=== PATIENT | female | born 1975 | race Caucasian/White ===

== ENCOUNTER 2016-03-19 15:44 | Emergency (ER) | payer OTHER | END 2016-03-19 18:39 | disposition left against medical advice (07) | LOC: M ED 15:44 | DX: I10 Essential (primary) hypertension (principal); F41.9 Anxiety disorder, unspecified; J45.909 Unspecified asthma, uncomplicated; G40.909 Epilepsy, unspecified, not intractable, without status epilepticus; E28.2 Polycystic ovarian syndrome; D25.9 Leiomyoma of uterus, unspecified; F17.210 Nicotine dependence, cigarettes, uncomplicated; Z79.51 Long term (current) use of inhaled steroids; Z79.899 Other long term (current) drug therapy; Z91.041 Radiographic dye allergy status; Z88.0 Allergy status to penicillin; Z88.2 Allergy status to sulfonamides; Z53.29 Procedure and treatment not carried out because of patient's decision for other reasons ==

== ENCOUNTER 2016-05-24 11:43 | Emergency (ER) | payer OTHER ==
[~2016-05-24] VITALS: Ht 170.2 cm; Wt 103.0 kg
[2016-05-24] MEDS ORDERED: ALBU17IN INH (11:57)
[2016-05-24] MEDS ORDERED: ALPR2TAB3 PO (11:57)
[2016-05-24] MEDS ORDERED: guaiFENesin SYRUP 200 MG/10 ML UDC PO ONE (14:00)
[2016-05-24] MEDS ORDERED: ONDANSETRON 4 MG ORAL DISINTEGRATING TAB (S0181) PO ONE (14:15)
--- NOTE | 2016-05-24 14:49 | ED PDOC ---
Provider Note AT THIS TIME, PT CAME OUT TO THE DESK, CONCERNED SHE WAS HAVING AN ALLERGIC REACTION TO THE MEDICATIONS SHE HAD TODAY. STATED HER CHIN WAS RED AND FEELING FLUSHED. PT DENIES ANY THROAT TIGHTNESS, DIFFICULTY BREATHING OR ITCHING AT THIS TIME. MEDICATIONS ORDERED. PT STATED SHE DROVE HERSELF TO THE ER TODAY SO NO BENADRYL ORDERED AT THIS TIME. BUZZ MILTON PA-C May 24, 2016 14:48
[2016-05-24] MEDS ORDERED: FAMOTIDINE 20 MG TAB PO ONE (15:00)
[2016-05-24] MEDS ORDERED: predniSONE 20 MG TAB PO ONE (15:00)
[2016-05-24] MEDS ORDERED: ZITHTAB PO (15:10)
[2016-05-24] MEDS ORDERED: TESS100C PO (15:10)
[2016-05-24 15:20] VITALS: BP 145/89
== END 2016-05-24 15:25 | disposition home or self-care (01) ==
LOC: M ED 12:36
DX: J01.90 Acute sinusitis, unspecified (principal); F41.9 Anxiety disorder, unspecified; J45.909 Unspecified asthma, uncomplicated; N83.299 Other ovarian cyst, unspecified side; F17.200 Nicotine dependence, unspecified, uncomplicated; Z88.6 Allergy status to analgesic agent; Z91.041 Radiographic dye allergy status; Z88.5 Allergy status to narcotic agent; Z88.0 Allergy status to penicillin; Z88.2 Allergy status to sulfonamides

== ENCOUNTER 2016-08-07 23:31 | Emergency (ER) | payer OTHER ==
[~2016-08-07] VITALS: Ht 175.3 cm; Wt 105.2 kg
[~2016-08-07 23:31] MED LIST: ALBU17IN INH; ALPR2TAB3 PO; TESS100C PO; ZITHTAB PO
[2016-08-07 23:32] VITALS: BP 133/86
[2016-08-08] MEDS ORDERED: VITA200016 PO
[2016-08-08] MEDS ORDERED: VITA50LO2 PO
[2016-08-08] MEDS ORDERED: GOOD1POW4 PO
[2016-08-08] MEDS ORDERED: IRON65TA PO (00:01)
== END 2016-08-08 03:10 | disposition left against medical advice (07) ==
LOC: M ED 08-08 00:39
DX: M79.606 Pain in leg, unspecified (principal); Z53.21 Procedure and treatment not carried out due to patient leaving prior to being seen by health care provider

== ENCOUNTER → 2016-08-09 | Outpatient (CLI) | payer OTHER ==
[~2016-08-09] MED LIST changes: +GOOD1POW4 PO; +IRON65TA PO; +VITA200016 PO; +VITA50LO2 PO
--- NOTE | 2016-08-09 16:46 | REP ---
Duplex extremity venous ultrasound: Right lower extremity. History: Right lower extremity pain. Multiple bruises. Findings: The deep veins are anechoic and fully compressible from the groin to the popliteal fossa in the right lower extremity. Color flow imaging is homogeneous. Spectral Doppler interrogation demonstrates intact respiratory variation in flow and normal manual augmentation of flow. There is no evidence of deep vein thrombosis. Scanning in the area of the pain in the calf shows a new 1.1 x 0.7 x 1.4 cm hypoechoic zone in the subcutaneous region which could be a contusion or hematoma. No other abnormality. Impression: Negative right lower extremity duplex venous ultrasound. No evidence of deep vein thrombosis. Signed by Jerome Gilliam MD 08/09/2016 08:06 P
== END ==
LOC: M RAD 15:57
PROVIDERS: ATTEND Physician Assistant Medical
DX: M79.661 Pain in right lower leg (principal); R60.0 Localized edema

== ENCOUNTER 2016-09-05 00:13 | Emergency (ER) | payer OTHER ==
[2016-09-05 02:10] VITALS: BP 128/78
[2016-09-05] MEDS ORDERED: DERMABOND TOPICAL SKIN ADHESIVE TOP ONE (02:45)
== END 2016-09-05 03:22 | disposition home or self-care (01) ==
LOC: M ED 01:21
DX: S91.311A Laceration without foreign body, right foot, initial encounter (principal); W25.XXXA Contact with sharp glass, initial encounter; Y92.009 Unspecified place in unspecified non-institutional (private) residence as the place of occurrence of the external cause; Y93.89 Activity, other specified; Y99.8 Other external cause status; J45.909 Unspecified asthma, uncomplicated; F17.200 Nicotine dependence, unspecified, uncomplicated; Z88.5 Allergy status to narcotic agent; Z88.0 Allergy status to penicillin; Z88.2 Allergy status to sulfonamides; Z88.6 Allergy status to analgesic agent; Z91.041 Radiographic dye allergy status

== ENCOUNTER → 2016-11-05 | Outpatient (CLI) | payer OTHER | LOC: M SMT 15:43 | PROVIDERS: ATTEND Specialist | DX: N83.202 Unspecified ovarian cyst, left side (principal) ==

== ENCOUNTER → 2017-02-25 | Outpatient (CLI) | payer OTHER ==
[2017-02-25 12:00] LABS: BASO # 0.1 10^3/uL (0.0-0.2); BASO % 0.6 % (0.0-1.0); EOS # 0.2 10^3/uL (0.0-0.50); EOS % 1.9 % (0.0-3.0); IMMATURE GRANULOCYTE % 0.3 % (0-0); LYMPH # 1.6 10^3/uL (1.5-4.5); LYMPH % 17.3 % (24.0-44.0); MEAN CORPUSCULAR HEMOGLOBIN 31.1 pg (27.0-33.0); MEAN CORPUSCULAR HGB CONC 33.7 g/dl (32.0-36.5); MEAN CORPUSCULAR VOLUME 92.2 fl (80.0-96.0); MONO # 0.5 10^3/uL (0.0-0.8); NEUTROPHILS # 7.1 10^3/uL (1.8-7.7); NEUTROPHILS % 74.9 % (36.0-66.0); PLATELET COUNT, AUTOMATED 247 10^3/uL (150-450); WHITE BLOOD COUNT 9.5 10^3/uL (4.0-10.0)
[2017-02-25 12:51] LABS: ALBUMIN 3.9 GM/DL (3.2-5.2); ALBUMIN/GLOBULIN RATIO 1.34 (1.00-1.93); ALKALINE PHOSPHATASE 38 U/L (45-117); ALT/SGPT 16 U/L (12-78); ANION GAP 10 MEQ/L (8-16); AST/SGOT 10 U/L (7-37); BILIRUBIN,TOTAL 0.8 MG/DL (0.2-1.0); BLOOD UREA NITROGEN 8 MG/DL (7-18); CALCIUM LEVEL 8.7 MG/DL (8.5-10.1); CARBON DIOXIDE LEVEL 24 MEQ/L (21-32); CHLORIDE LEVEL 107 MEQ/L (98-107); CHOLESTEROL LEVEL 120 MG/DL (<200); CREATININE FOR GFR 0.68 MG/DL (0.55-1.02); GLOMERULAR FILTRATION RATE > 60.0 (>58); GLUCOSE, FASTING 100 MG/DL (70-105); POTASSIUM SERUM 3.9 MEQ/L (3.5-5.1); SODIUM LEVEL 141 MEQ/L (136-145); T UPTAKE 32 % (30-39); THYROXINE (T4) 10.4 UG/DL (4.5-12.0); TOTAL PROTEIN 6.8 GM/DL (6.4-8.2); TRIGLYCERIDES LEVEL 92 MG/DL (<150)
== END ==
LOC: M LAB 11:32
PROVIDERS: ATTEND Physician Assistant Medical
DX: E78.2 Mixed hyperlipidemia (principal); F41.1 Generalized anxiety disorder; E55.9 Vitamin D deficiency, unspecified

== ENCOUNTER 2017-07-06 21:01 | Emergency (ER) | payer OTHER ==
[2017-07-06] MEDS: LIDOCAINE VISCOUS 2% SOLN 15ML UDC SSP (21:30)
[2017-07-06] MEDS: traMADol 50 MG TAB PO ×2 (21:45→22:06)
[2017-07-06] MEDS: CEPHALEXIN 500 MG CAP PO (22:05)
== END 2017-07-06 22:09 | disposition home or self-care (01) ==
LOC: M ED 21:01
DX: J02.9 Acute pharyngitis, unspecified (principal); J03.90 Acute tonsillitis, unspecified; F17.200 Nicotine dependence, unspecified, uncomplicated; Z88.6 Allergy status to analgesic agent; Z88.0 Allergy status to penicillin; Z88.5 Allergy status to narcotic agent; Z88.2 Allergy status to sulfonamides; Z91.041 Radiographic dye allergy status
CPT/HCPCS: 87880

== ENCOUNTER 2017-10-14 18:42 | Emergency (ER) | payer MEDICAID, SELFPAY, OTHER ==
[2017-10-14 20:09] LABS: BASO % 0.4 % (0.0-1.0); EOS # 0.2 10^3/uL (0.0-0.50); EOS % 1.9 % (0.0-3.0); HEMATOCRIT 40.3 % (36.0-47.0); HEMOGLOBIN 13.4 g/dl (12.0-15.5); IMMATURE GRANULOCYTE % 0.3 % (0-3.0); LYMPH # 2.2 10^3/uL (1.5-4.5); MEAN CORPUSCULAR HEMOGLOBIN 30.4 pg (27.0-33.0); MEAN CORPUSCULAR HGB CONC 33.3 g/dl (32.0-36.5); MEAN CORPUSCULAR VOLUME 91.4 fl (80.0-96.0); MONO # 0.5 10^3/uL (0.0-0.8); MONO % 4.5 % (0.0-5.0); NEUTROPHILS # 7.9 10^3/uL (1.8-7.7); NEUTROPHILS % 72.9 % (36.0-66.0); PLATELET COUNT, AUTOMATED 256 10^3/uL (150-450); RED BLOOD COUNT 4.41 10^6/uL (4.00-5.40); RED CELL DISTRIBUTION WIDTH 13.2 % (11.5-14.5); WHITE BLOOD COUNT 10.9 10^3/uL (4.0-10.0)
[2017-10-14 20:15] LABS: CONTROL LINE HCG INT CTR LINE PRESENT; HCG, SERUM QUALITATIVE NEGATIVE (NEGATIVE)
[2017-10-14 20:27] LABS: ANION GAP 9 MEQ/L (8-16); BLOOD UREA NITROGEN 10 MG/DL (7-18); CALCIUM LEVEL 8.3 MG/DL (8.5-10.1); CARBON DIOXIDE LEVEL 24 MEQ/L (21-32); CHLORIDE LEVEL 108 MEQ/L (98-107); CK-MB VALUE MASS < 1.0 NG/ML (<3.6); CPK CREATINE PHOSPHOKINASE 81 U/L (26-192); CREATININE FOR GFR 0.81 MG/DL (0.55-1.30); GLOMERULAR FILTRATION RATE > 60.0 (>58); GLUCOSE, FASTING 120 MG/DL (70-100); MB/CK RELATIVE INDEX 1.23 (< OR =4); POTASSIUM SERUM 3.7 MEQ/L (3.5-5.1); SODIUM LEVEL 141 MEQ/L (136-145); TROPONIN I < 0.02 NG/ML (< 0.10)
[2017-10-14] MEDS: ASPIRIN 81 MG CHEW TABLET PO (20:28)
[2017-10-14] MEDS: LORazepam 2 MG/ML VIAL (J2060) IV (20:28)
[2017-10-14 22:22] LABS: CPK CREATINE PHOSPHOKINASE 66 U/L (26-192); TROPONIN I < 0.02 NG/ML (< 0.10)
[2017-10-14 22:23] LABS: CK-MB VALUE MASS < 1.0 NG/ML (<3.6); MB/CK RELATIVE INDEX 1.51 (< OR =4)
== END 2017-10-14 23:18 | disposition home or self-care (01) ==
LOC: M ED 18:42
DX: F41.0 Panic disorder [episodic paroxysmal anxiety] (principal); Z72.0 Tobacco use; Z88.6 Allergy status to analgesic agent; Z88.5 Allergy status to narcotic agent; Z88.0 Allergy status to penicillin; Z88.2 Allergy status to sulfonamides; Z91.041 Radiographic dye allergy status
CPT/HCPCS: J2060

== ENCOUNTER → 2017-10-22 | Outpatient (CLI) | payer OTHER ==
[2017-10-24 10:47] LABS: RUBELLA IgG QUALITATIVE IMMUNE (IMMUNE)
== END ==
LOC: M WUC 13:31
DX: Z11.59 Encounter for screening for other viral diseases (principal)
CPT/HCPCS: 86762

== ENCOUNTER → 2017-12-19 | Outpatient (REF) | payer OTHER | LOC: M SFHCLERA 16:12 | DX: R53.81 Other malaise (principal) ==

== ENCOUNTER → 2017-12-29 | Outpatient (REF) | payer OTHER | LOC: M SFHCLERA 16:06 | DX: R35.0 Frequency of micturition (principal) ==

== ENCOUNTER 2018-02-18 20:29 | Emergency (ER) | payer OTHER ==
[2018-02-18] MEDS ORDERED: dexameTHASONE 4 MG/ML 1ML VIAL (J1100) As Ordered (20:51)
[2018-02-18] MEDS ORDERED: IPRATROPIUM 0.02% SOLN 0.5MG/2.5 ML NEB As Ordered (20:51)
[2018-02-18] MEDS ORDERED: ALBUTEROL SULFATE 2.5 MG/0.5 ML INH NEB SOLN As Ordered (20:51)
== END 2018-02-18 22:26 | disposition home or self-care (01) ==
LOC: M ED 20:29
DX: J45.901 Unspecified asthma with (acute) exacerbation (principal); Z77.098 Contact with and (suspected) exposure to other hazardous, chiefly nonmedicinal, chemicals; J01.90 Acute sinusitis, unspecified; F17.200 Nicotine dependence, unspecified, uncomplicated; Z88.0 Allergy status to penicillin; Z88.2 Allergy status to sulfonamides; Z88.5 Allergy status to narcotic agent; Z88.6 Allergy status to analgesic agent; Z91.041 Radiographic dye allergy status; Z79.899 Other long term (current) drug therapy
CPT/HCPCS: 99284

== ENCOUNTER 2018-06-28 00:20 | Emergency (ER) | payer OTHER ==
[~2018-06-28] VITALS: Ht 172.7 cm; Wt 121.1 kg
[~2018-06-28 00:20] MED LIST changes: +DOXY100C37 PO; +IBUP1TAB7 PO; +KEFL500C17 PO; +PRED20TA PO
[2018-06-28 00:21] VITALS: BP 132/77
[2018-06-28] MEDS ORDERED: predniSONE 20 MG TAB PO ONE (00:45)
[2018-06-28] MEDS ORDERED: diphenhydrAMINE 50 MG CAP PO ONE (00:45)
[2018-06-28] MEDS ORDERED: IPRATROPIUM 0.5MG/ALBUTEROL 2.5MG INH SOL UD 3ML (DUONEB)(J7620) NEB ONE (00:45)
[2018-06-28] MEDS ORDERED: PRED20TA PO (01:23)
[2018-06-28] MEDS ORDERED: GUAI100L6 PO (01:23)
== END 2018-06-28 01:30 | disposition home or self-care (01) ==
LOC: M ED 00:20
DX: F41.9 Anxiety disorder, unspecified (principal); F17.200 Nicotine dependence, unspecified, uncomplicated; Z91.041 Radiographic dye allergy status; Z88.0 Allergy status to penicillin; Z88.1 Allergy status to other antibiotic agents; Z88.2 Allergy status to sulfonamides; Z88.8 Allergy status to other drugs, medicaments and biological substances; Z88.5 Allergy status to narcotic agent

== ENCOUNTER 2018-07-17 15:32 | Emergency (ER) | payer OTHER ==
[~2018-07-17] VITALS: Ht 172.7 cm; Wt 118.2 kg
[~2018-07-17 15:32] MED LIST changes: +GUAI100L6 PO
[2018-07-17 17:03] LABS: ALBUMIN 3.6 GM/DL (3.2-5.2); ALT/SGPT 13 U/L (12-78); BILIRUBIN,TOTAL 1.1 MG/DL (0.2-1.0); BLOOD UREA NITROGEN 10 MG/DL (7-18); CALCIUM LEVEL 8.2 MG/DL (8.5-10.1); CARBON DIOXIDE LEVEL 28 MEQ/L (21-32); CHLORIDE LEVEL 107 MEQ/L (98-107); CREATININE FOR GFR 0.81 MG/DL (0.55-1.30); GLOMERULAR FILTRATION RATE > 60.0 (>58); GLUCOSE, FASTING 97 MG/DL (70-100); POTASSIUM SERUM 3.9 MEQ/L (3.5-5.1); SODIUM LEVEL 138 MEQ/L (136-145); TOTAL PROTEIN 6.9 GM/DL (6.4-8.2)
--- NOTE | 2018-07-17 18:49 | REPVR ---
EXAM: US Duplex Right Lower Extremity Veins, Limited EXAM DATE/TIME: 07/17/2018 6:33 PM CLINICAL HISTORY: 43 years old, female; Pain; Leg, upper and leg, lower; Right; Additional info: Pain/swelling, eval for dvt TECHNIQUE: Imaging protocol: Real-time Duplex ultrasound of the Right Lower Extremity with 2-D lind scale, color Doppler flow and spectral waveform analysis. Limited exam was focused on the right lower extremity veins. COMPARISON: US Duplex, Ext,LOWER veins,unilat 08/09/2016 4:05 PM FINDINGS: Right deep veins: Unremarkable. The common femoral, femoral, proximal profunda femoral and popliteal veins are patent without thrombus. Normal Doppler waveforms. Normal compressibility and/or augmentation response. Right superficial veins: Unremarkable. Saphenofemoral junction is patent without thrombus. Soft tissues: Unremarkable. IMPRESSION: No acute findings. No evidence of deep vein thrombosis. Electronically signed by: Lul Norton On 07/17/2018 18:49:33 PM
[2018-07-17 19:06] VITALS: BP 116/73
== END 2018-07-17 19:12 | disposition home or self-care (01) ==
LOC: M ED 15:32
DX: R60.0 Localized edema (principal); R79.1 Abnormal coagulation profile; J45.909 Unspecified asthma, uncomplicated; Z87.42 Personal history of other diseases of the female genital tract; F17.200 Nicotine dependence, unspecified, uncomplicated; Z91.048 Other nonmedicinal substance allergy status; Z88.0 Allergy status to penicillin; Z88.2 Allergy status to sulfonamides; Z88.5 Allergy status to narcotic agent; Z88.6 Allergy status to analgesic agent

== ENCOUNTER 2018-07-24 18:14 | Emergency (ER) | payer OTHER ==
[~2018-07-24] VITALS: Ht 172.7 cm; Wt 121.7 kg
[2018-07-24] MEDS ORDERED: MELO15TA28 (18:20)
[2018-07-24] MEDS ORDERED: ALPR0.5T3 (18:20)
[2018-07-24 19:42] LABS: HEMATOCRIT 37.6 % (36.0-47.0); HEMOGLOBIN 12.2 g/dl (12.0-15.5); MEAN CORPUSCULAR HEMOGLOBIN 28.7 pg (27.0-33.0); MEAN CORPUSCULAR HGB CONC 32.4 g/dl (32.0-36.5); MEAN CORPUSCULAR VOLUME 88.5 fl (80.0-96.0); PLATELET COUNT, AUTOMATED 263 10^3/uL (150-450); RED BLOOD COUNT 4.25 10^6/uL (4.00-5.40)
[2018-07-24 20:03] LABS: BLOOD UREA NITROGEN 9 MG/DL (7-18); CALCIUM LEVEL 8.4 MG/DL (8.5-10.1); CARBON DIOXIDE LEVEL 25 MEQ/L (21-32); CHLORIDE LEVEL 106 MEQ/L (98-107); CK-MB VALUE MASS < 1.0 NG/ML (<3.6); CPK CREATINE PHOSPHOKINASE 54 U/L (26-192); CREATININE FOR GFR 0.74 MG/DL (0.55-1.30); GLOMERULAR FILTRATION RATE > 60.0 (>58); GLUCOSE, FASTING 92 MG/DL (70-100); MB/CK RELATIVE INDEX 1.85 (< OR =4); NT-PRO BNP 122 PG/ML (<125); POTASSIUM SERUM 3.9 MEQ/L (3.5-5.1); SODIUM LEVEL 138 MEQ/L (136-145); TROPONIN I < 0.02 NG/ML (< 0.10)
--- NOTE | 2018-07-24 20:58 | REPVR ---
EXAM: US Duplex Bilateral Lower Extremity Veins EXAM DATE/TIME: 07/24/2018 8:40 PM CLINICAL HISTORY: 43 years old, female; Pain; Leg, upper; Bilateral; Additional info: Leg swelling, pain RO dvt TECHNIQUE: Imaging protocol: Real-time duplex ultrasound of the Bilateral Lower Extremities with 2-D lind scale, color Doppler flow and spectral waveform analysis. Complete exam focused on the bilateral lower extremity veins. COMPARISON: US Duplex, Ext,LOWER veins,unilat RIGHT 07/17/2018 6:23 PM FINDINGS: Right deep veins: Unremarkable. The common femoral, femoral, proximal profunda femoral and popliteal veins are patent without thrombus. Normal Doppler waveforms. Normal compressibility and/or augmentation response. Right superficial veins: Saphenofemoral junction is patent without thrombus. Left deep veins: Unremarkable. The common femoral, femoral, proximal profunda femoral and popliteal veins are patent without thrombus. Normal Doppler waveforms. Normal compressibility and/or augmentation response. Left superficial veins: Saphenofemoral junction is patent without thrombus. Soft tissues: Unremarkable. IMPRESSION: No acute findings. No evidence of deep vein thrombosis. Electronically signed by: Binh Elkins On 07/24/2018 20:57:56 PM
[2018-07-24 21:34] VITALS: BP 149/89
--- NOTE | 2018-07-25 08:42 | REP ---
Chest x-ray: Two views. History: Short of breath. . Comparison study: October 14, 2017 . Findings: The lungs are well inflated and free of infiltrate. The pleural angles are sharp. The heart size is normal. Pulmonary vasculature is not increased. No significant bony abnormality is seen. Impression: Negative chest x-ray. Electronically Signed by Jerome Gilliam MD 07/25/2018 08:34 A
== END 2018-07-24 21:37 | disposition home or self-care (01) ==
LOC: M ED 18:14
DX: R60.0 Localized edema (principal); F17.211 Nicotine dependence, cigarettes, in remission; Z88.0 Allergy status to penicillin; Z88.2 Allergy status to sulfonamides; Z88.5 Allergy status to narcotic agent; Z88.6 Allergy status to analgesic agent; Z91.041 Radiographic dye allergy status; Z79.51 Long term (current) use of inhaled steroids

== ENCOUNTER 2018-08-11 01:31 | Emergency (ER) | payer OTHER ==
[~2018-08-11] VITALS: Ht 172.7 cm; Wt 118.2 kg
[~2018-08-11 01:31] MED LIST changes: +ALPR0.5T3; +MELO15TA28
[2018-08-11] MEDS ORDERED: ALBU8.5H (01:38)
[2018-08-11 02:02] LABS: BASO # 0.1 10^3/uL (0.0-0.2); BASO % 0.6 % (0.0-1.0); EOS # 0.2 10^3/uL (0.0-0.50); EOS % 1.9 % (0.0-3.0); HEMATOCRIT 37.4 % (36.0-47.0); HEMOGLOBIN 12.8 g/dl (12.0-15.5); LYMPH # 2.2 10^3/uL (1.5-4.5); LYMPH % 26.1 % (24.0-44.0); MEAN CORPUSCULAR HEMOGLOBIN 30.1 pg (27.0-33.0); MEAN CORPUSCULAR HGB CONC 34.2 g/dl (32.0-36.5); MONO # 0.4 10^3/uL (0.0-0.8); MONO % 4.8 % (0.0-5.0); NEUTROPHILS # 5.6 10^3/uL (1.8-7.7); NEUTROPHILS % 66.2 % (36.0-66.0); PLATELET COUNT, AUTOMATED 276 10^3/uL (150-450); RED BLOOD COUNT 4.25 10^6/uL (4.00-5.40); WHITE BLOOD COUNT 8.5 10^3/uL (4.0-10.0)
[2018-08-11 02:15] LABS: INR 0.86; PROTHROMBIN TIME 11.8 SECONDS (12.1-14.4)
[2018-08-11 02:47] LABS: ALBUMIN 3.3 GM/DL (3.2-5.2); ALT/SGPT 16 U/L (12-78); BILIRUBIN,TOTAL 0.6 MG/DL (0.2-1.0); BLOOD UREA NITROGEN 11 MG/DL (7-18); CALCIUM LEVEL 7.8 MG/DL (8.5-10.1); CARBON DIOXIDE LEVEL 24 MEQ/L (21-32); CHLORIDE LEVEL 106 MEQ/L (98-107); CK-MB VALUE MASS < 1.0 NG/ML (<3.6); CPK CREATINE PHOSPHOKINASE 82 U/L (26-192); CREATININE FOR GFR 0.82 MG/DL (0.55-1.30); GLOMERULAR FILTRATION RATE > 60.0 (>58); GLUCOSE, FASTING 118 MG/DL (70-100); LIPASE 122 U/L (73-393); MB/CK RELATIVE INDEX 1.22 (< OR =4); POTASSIUM SERUM 3.6 MEQ/L (3.5-5.1); SODIUM LEVEL 142 MEQ/L (136-145); TOTAL PROTEIN 6.6 GM/DL (6.4-8.2); TROPONIN I < 0.02 NG/ML (< 0.10)
[2018-08-11 05:54] LABS: CK-MB VALUE MASS < 1.0 NG/ML (<3.6); CPK CREATINE PHOSPHOKINASE 84 U/L (26-192); MB/CK RELATIVE INDEX 1.19 (< OR =4); TROPONIN I < 0.02 NG/ML (< 0.10)
[2018-08-11] MEDS ORDERED: ZITH250T PO (06:29)
[2018-08-11 06:44] VITALS: BP 119/64
--- NOTE | 2018-08-11 08:38 | REP ---
Portable chest x-ray: Single view. History: Chest pain. Comparison study: July 24, 2018. Findings: EKG monitoring electrodes overlie the chest. The lungs are well inflated and clear. Pleural angles are sharp. Heart size is normal. No significant bony abnormality. Impression: No active disease. Electronically Signed by Jerome Gilliam MD 08/11/2018 08:30 A
--- NOTE | 2018-08-11 20:55 | ECGEPIP ---
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
--- NOTE | 2018-08-11 20:55 | ECGEPIP ---
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
== END 2018-08-11 06:45 | disposition home or self-care (01) ==
LOC: M ED 01:31
DX: R07.89 Other chest pain (principal); F41.1 Generalized anxiety disorder; Z88.0 Allergy status to penicillin; Z88.1 Allergy status to other antibiotic agents; Z88.2 Allergy status to sulfonamides; Z88.5 Allergy status to narcotic agent; Z88.8 Allergy status to other drugs, medicaments and biological substances; Z91.040 Latex allergy status; Z87.891 Personal history of nicotine dependence

== ENCOUNTER → 2018-08-28 | Outpatient (REF) | payer OTHER ==
[~2018-08-28] MED LIST changes: +ALBU8.5H; +ZITH250T PO
== END ==
LOC: M SFHCLERA 14:23
PROVIDERS: ATTEND Nurse Practitioner Family
DX: M54.2 Cervicalgia (principal)

== ENCOUNTER 2018-11-30 21:33 | Emergency (ER) | payer OTHER ==
[~2018-11-30] VITALS: Ht 172.7 cm; Wt 118.1 kg
[2018-11-30 21:33] VITALS: BP 133/85
[2018-11-30] MEDS ORDERED: ALBUTEROL 90 MCG/ACT 8GM HFA INHALER INH ONE (23:00)
== END 2018-11-30 22:58 | disposition home or self-care (01) ==
LOC: M ED 21:33
DX: Z76.0 Encounter for issue of repeat prescription (principal); J45.909 Unspecified asthma, uncomplicated; Z79.899 Other long term (current) drug therapy; Z88.0 Allergy status to penicillin; Z88.2 Allergy status to sulfonamides; Z88.5 Allergy status to narcotic agent; Z88.6 Allergy status to analgesic agent; Z91.041 Radiographic dye allergy status

== ENCOUNTER 2019-02-15 22:30 | Emergency (ER) | payer OTHER ==
[~2019-02-15] VITALS: Ht 170.2 cm; Wt 113.6 kg
[2019-02-15 23:37] LABS: INFLUENZA A AMPLIFICATION NEGATIVE (NEGATIVE); INFLUENZA B AMPLIFICATION NEGATIVE (NEGATIVE)
[2019-02-16] MEDS ORDERED: PRED20TA PO ×2 (00:36→02:33)
[2019-02-16] MEDS ORDERED: PSEUDOEPHEDRINE 30 MG TAB PO STA (01:36)
[2019-02-16] MEDS ORDERED: BENZONATATE 100 MG CAP PO ONE (01:45)
[2019-02-16] MEDS ORDERED: predniSONE 20 MG TAB PO ONE (01:45)
[2019-02-16] MEDS ORDERED: GI COCKTAIL 50ML BTL(HYOSCYAMINE/MAALOX/LIDOCAINE VISCOUS)(1:3:1) PO ONE (01:45)
[2019-02-16] MEDS ORDERED: KETOROLAC 60 MG/2 ML VIAL (J1885) IM ONE (01:45)
[2019-02-16] MEDS ORDERED: TESS100C PO (02:33)
[2019-02-16] MEDS ORDERED: PSEU120T19 PO (02:33)
[2019-02-16 02:41] VITALS: BP 150/91
--- NOTE | 2019-02-16 07:38 | REP ---
Clinical: Cough and congestion . Comparison: 07/24/2018 . Technique: PA and lateral. Findings: The mediastinum and cardiac silhouette are normal. The lung zhang are clear and without acute consolidation, effusion, or pneumothorax. The skeletal structures are intact and normal. Impression: 1. No acute cardiopulmonary process. Electronically Signed by Joseph Crowe MD 02/16/2019 07:30 A
== END 2019-02-16 02:43 | disposition home or self-care (01) ==
LOC: M ED 22:30
DX: J32.9 Chronic sinusitis, unspecified (principal); H92.03 Otalgia, bilateral; R05 Cough; J02.9 Acute pharyngitis, unspecified; Z87.891 Personal history of nicotine dependence; Z91.041 Radiographic dye allergy status; Z88.0 Allergy status to penicillin; Z88.2 Allergy status to sulfonamides; Z88.5 Allergy status to narcotic agent; Z79.899 Other long term (current) drug therapy; Z79.52 Long term (current) use of systemic steroids
CPT/HCPCS: 71046; 87502; 87880; 96372; 99283; J1885

== ENCOUNTER 2019-03-28 23:38 | Emergency (ER) | payer OTHER ==
[~2019-03-28] VITALS: Ht 175.3 cm; Wt 114.1 kg
[~2019-03-28 23:38] MED LIST changes: +PSEU120T19 PO
[2019-03-29] MEDS ORDERED: methylPREDNISolone INJ 125 MG/2 ML VIAL (J2930) IM ONE (00:45)
[2019-03-29] MEDS ORDERED: IPRATROPIUM 0.5MG/ALBUTEROL 2.5MG INH SOL UD 3ML (DUONEB)(J7620) NEB ONE (00:45)
[2019-03-29 01:05] LABS: INFLUENZA A AMPLIFICATION NEGATIVE (NEGATIVE); INFLUENZA B AMPLIFICATION POSITIVE (NEGATIVE)
[2019-03-29] MEDS ORDERED: PRED20TA PO (01:23)
[2019-03-29] MEDS ORDERED: OSEL75CA PO (01:23)
[2019-03-29] MEDS ORDERED: OSELTAMIVIR PHOSPHATE 75 MG CAP (TAMIFLU) PO ONE (01:30)
--- NOTE | 2019-03-29 01:43 | REP ---
Clinical: Cough and shortness of breath . Comparison: 02/16/2019 . Technique: PA and lateral. Findings: The mediastinum and cardiac silhouette are normal. The lung zhang are clear and without acute consolidation, effusion, or pneumothorax. The skeletal structures are intact and normal. Impression: 1. No acute cardiopulmonary process. Electronically Signed by Joseph Crowe MD 03/29/2019 01:33 A
[2019-03-29 02:05] VITALS: BP 139/78
== END 2019-03-29 02:05 | disposition home or self-care (01) ==
LOC: M ED 23:38
DX: J45.901 Unspecified asthma with (acute) exacerbation (principal); J10.1 Influenza due to other identified influenza virus with other respiratory manifestations; F41.9 Anxiety disorder, unspecified; D25.9 Leiomyoma of uterus, unspecified; Z88.0 Allergy status to penicillin; Z88.1 Allergy status to other antibiotic agents; Z88.2 Allergy status to sulfonamides; Z88.5 Allergy status to narcotic agent; Z88.8 Allergy status to other drugs, medicaments and biological substances; Z91.041 Radiographic dye allergy status
CPT/HCPCS: 71046; 87502; 87880; 96372; 99284; J2930

== ENCOUNTER 2019-06-16 09:19 | Emergency (ER) | payer OTHER ==
[~2019-06-16] VITALS: Ht 172.7 cm; Wt 126.9 kg
[~2019-06-16 09:19] MED LIST changes: -ALPR0.5T3; +ALPR0.5T3 PO; +OSEL75CA PO
[2019-06-16] MEDS ORDERED: ONDA4TAB6 PO (09:30)
[2019-06-16] MEDS ORDERED: DIPH50CA PO (09:30)
[2019-06-16 10:55] LABS: HEMATOCRIT 40.3 % (36.0-47.0); MEAN CORPUSCULAR HGB CONC 32.3 g/dl (32.0-36.5); MEAN CORPUSCULAR VOLUME 86.7 fl (80.0-96.0); PLATELET COUNT, AUTOMATED 263 10^3/uL (150-450); RED BLOOD COUNT 4.65 10^6/uL (4.00-5.40); WHITE BLOOD COUNT 7.5 10^3/uL (4.0-10.0)
[2019-06-16 11:34] LABS: BLOOD UREA NITROGEN 11 MG/DL (7-18); CALCIUM LEVEL 8.5 MG/DL (8.5-10.1); CARBON DIOXIDE LEVEL 25 MEQ/L (21-32); CHLORIDE LEVEL 108 MEQ/L (98-107); GLOMERULAR FILTRATION RATE > 60.0 (>58); GLUCOSE, FASTING 119 MG/DL (70-100); HCG, SERUM QUANTITATIVE < 1.0 MIU/ML; SODIUM LEVEL 140 MEQ/L (136-145)
--- NOTE | 2019-06-16 11:59 | REP ---
CHEST, SINGLE VIEW: There is no evidence of acute infiltrate. No pleural effusion is seen. The heart is normal in size. The mediastinal silhouette is unremarkable. The visualized osseous structures are intact. IMPRESSION: No acute pulmonary disease. Electronically Signed by Waldemar Rivas MD 06/16/2019 12:15 P
[2019-06-16] MEDS ORDERED: PAME10CA PO (12:04)
[2019-06-16 12:20] VITALS: BP 134/93
== END 2019-06-16 12:22 | disposition home or self-care (01) ==
LOC: M ED 09:19
DX: F43.0 Acute stress reaction (principal); G47.00 Insomnia, unspecified; F41.9 Anxiety disorder, unspecified; D25.9 Leiomyoma of uterus, unspecified; J45.909 Unspecified asthma, uncomplicated; Z79.51 Long term (current) use of inhaled steroids; Z79.899 Other long term (current) drug therapy; Z88.0 Allergy status to penicillin; Z88.2 Allergy status to sulfonamides; Z88.6 Allergy status to analgesic agent; Z88.8 Allergy status to other drugs, medicaments and biological substances; Z91.041 Radiographic dye allergy status

== ENCOUNTER 2019-06-17 05:31 | Emergency (ER) | payer OTHER ==
[~2019-06-17] VITALS: Ht 172.7 cm; Wt 121.4 kg
[~2019-06-17 05:31] MED LIST changes: +DIPH50CA PO; +ONDA4TAB6 PO; +PAME10CA PO
[2019-06-17 05:32] VITALS: BP 158/92
[2019-06-17] MEDS ORDERED: LORazepam 2 MG TAB PO ONE (06:00)
== END 2019-06-17 06:14 | disposition home or self-care (01) ==
LOC: M ED 05:31
DX: F41.0 Panic disorder [episodic paroxysmal anxiety] (principal); F41.9 Anxiety disorder, unspecified; J45.909 Unspecified asthma, uncomplicated; Z79.899 Other long term (current) drug therapy; Z91.041 Radiographic dye allergy status; Z88.0 Allergy status to penicillin; Z88.2 Allergy status to sulfonamides; Z88.8 Allergy status to other drugs, medicaments and biological substances; Z88.5 Allergy status to narcotic agent

== ENCOUNTER 2019-08-03 15:42 | Emergency (ER) | payer OTHER ==
[~2019-08-03] VITALS: Ht 170.2 cm; Wt 123.5 kg
[2019-08-03] MEDS ORDERED: PRED20TA (15:50)
[2019-08-03] MEDS ORDERED: FLUTISP (15:50)
[2019-08-03] MEDS ORDERED: HYDR50TA70 (15:50)
[2019-08-03] MEDS ORDERED: LEVO500T3 (15:50)
[2019-08-03] MEDS ORDERED: ALLEGRA (15:50)
[2019-08-03 16:07] VITALS: BP 158/90
[2019-08-03] MEDS ORDERED: NASA1SPR NARES (17:14)
[2019-08-03] MEDS ORDERED: PRED20TA PO (17:14)
[2019-08-03] MEDS ORDERED: methylPREDNISolone INJ 125 MG/2 ML VIAL (J2930) IM ONE (17:15)
== END 2019-08-03 17:28 | disposition home or self-care (01) ==
LOC: M ED 15:42
DX: H93.12 Tinnitus, left ear (principal); J30.9 Allergic rhinitis, unspecified; F41.9 Anxiety disorder, unspecified; Z91.041 Radiographic dye allergy status; Z88.0 Allergy status to penicillin; Z88.2 Allergy status to sulfonamides; Z88.5 Allergy status to narcotic agent; Z79.899 Other long term (current) drug therapy; Z79.2 Long term (current) use of antibiotics; Z79.52 Long term (current) use of systemic steroids
CPT/HCPCS: 96372; 99283; J2930

== ENCOUNTER 2019-08-07 00:27 | Emergency (ER) | payer OTHER ==
[~2019-08-07] VITALS: Ht 170.2 cm; Wt 254.0 kg
[~2019-08-07 00:27] MED LIST changes: +ALLEGRA; +FLUTISP; +HYDR50TA70; +LEVO500T3; +NASA1SPR NARES; +PRED20TA
[2019-08-07] MEDS ORDERED: NORT10CA2 PO (01:00)
--- NOTE | 2019-08-07 02:42 | REPVR ---
PROCEDURE INFORMATION: Exam: CT Head Without Contrast Exam date and time: 08/07/2019 1:53 AM Age: 44 years old Clinical indication: Other: Head pressure; Additional info: Pressure in head, tinnitus TECHNIQUE: Imaging protocol: Computed tomography of the head without contrast. Radiation optimization: All CT scans at this facility use at least one of these dose optimization techniques: automated exposure control; mA and/or kV adjustment per patient size (includes targeted exams where dose is matched to clinical indication); or iterative reconstruction. COMPARISON: CT Head without contrast 2014-11-03 01:44 FINDINGS: Brain: Falx calcification. Mild cerebral volume loss. No midline shift, mass, fluid collection, or evidence of acute hemorrhage. Ventricles: Normal. No ventriculomegaly. Bones/joints: Unremarkable. No acute fracture. Sinuses: Visualized sinuses are unremarkable. No fluid levels. Mastoid air cells: Visualized mastoid air cells are well aerated. Soft tissues: Unremarkable. IMPRESSION: No acute intracranial abnormality. Electronically signed by: Hans Leonard On 08/07/2019 02:42:08 AM
[2019-08-07] MEDS ORDERED: VALA1TAB5 PO (02:52)
[2019-08-07 03:01] VITALS: BP 132/78
== END 2019-08-07 03:03 | disposition home or self-care (01) ==
LOC: M ED 00:27
DX: H93.13 Tinnitus, bilateral (principal); B02.9 Zoster without complications; J45.909 Unspecified asthma, uncomplicated; F41.9 Anxiety disorder, unspecified; D25.9 Leiomyoma of uterus, unspecified; Z79.899 Other long term (current) drug therapy; Z88.0 Allergy status to penicillin; Z88.1 Allergy status to other antibiotic agents; Z88.5 Allergy status to narcotic agent; Z88.8 Allergy status to other drugs, medicaments and biological substances; Z91.041 Radiographic dye allergy status

== ENCOUNTER 2019-08-09 12:34 | Emergency (ER) | payer OTHER ==
[~2019-08-09] VITALS: Ht 172.7 cm; Wt 113.6 kg
[~2019-08-09 12:34] MED LIST changes: +NORT10CA2 PO; +VALA1TAB5 PO
[2019-08-09 14:25] VITALS: BP 141/94
== END 2019-08-09 14:27 | disposition home or self-care (01) ==
LOC: M ED 12:34
DX: H93.13 Tinnitus, bilateral (principal); Z79.52 Long term (current) use of systemic steroids; Z79.899 Other long term (current) drug therapy; J45.909 Unspecified asthma, uncomplicated; F41.9 Anxiety disorder, unspecified; Z88.0 Allergy status to penicillin; Z88.2 Allergy status to sulfonamides; Z88.5 Allergy status to narcotic agent; Z88.8 Allergy status to other drugs, medicaments and biological substances; Z91.041 Radiographic dye allergy status

== ENCOUNTER 2020-01-18 16:10 | Emergency (ER) | payer OTHER ==
[~2020-01-18] VITALS: Ht 172.7 cm; Wt 126.8 kg
--- NOTE | 2020-01-18 18:06 | REP ---
INDICATION: new HTN COMPARISON: 06/16/2019. TECHNIQUE: PA/Lateral FINDINGS: Lungs: Clear, no infiltrate. Heart: Normal in size. Mediastinum: Mediastinal silhouette unremarkable. Pleural angles: Unremarkable.. Bones and soft tissues: Unremarkable. IMPRESSION: No acute pulmonary disease. <Electronically signed by Waldemar Rivas > 01/18/20 [id number]
[2020-01-18 18:42] LABS: BASO # 0.1 10^3/uL (0.0-0.2); BASO % 0.7 % (0.0-1.0); EOS # 0.1 10^3/uL (0.0-0.5); EOS % 0.7 % (0.0-3.0); HEMATOCRIT 40.4 % (36.0-47.0); HEMOGLOBIN 12.4 g/dl (12.0-15.5); LYMPH # 1.8 10^3/uL (1.5-5.0); LYMPH % 17.9 % (24.0-44.0); MEAN CORPUSCULAR HEMOGLOBIN 25.7 pg (27.0-33.0); MEAN CORPUSCULAR HGB CONC 30.7 g/dl (32.0-36.5); MEAN CORPUSCULAR VOLUME 83.6 fl (80.0-96.0); MONO # 0.4 10^3/uL (0.0-0.8); MONO % 4.3 % (0.0-5.0); NEUTROPHILS # 7.5 10^3/uL (1.5-8.5); NEUTROPHILS % 75.9 % (36.0-66.0); PLATELET COUNT, AUTOMATED 280 10^3/uL (150-450); RED BLOOD COUNT 4.83 10^6/uL (4.00-5.40); WHITE BLOOD COUNT 9.8 10^3/uL (4.0-10.0)
[2020-01-18 18:51] LABS: APPEARANCE, URINE CLEAR (CLEAR); BACTERIA, URINE AUTO 1+ (NEGATIVE); BILIRUBIN, URINE AUTO NEGATIVE (NEGATIVE); BLOOD, URINE BLOOD NEGATIVE (NEGATIVE); COLOR, URINE YELLOW (YELLOW); GLUCOSE, URINE (UA) AUTO NEGATIVE (NEGATIVE); KETONE, URINE AUTO NEGATIVE (NEGATIVE); LEUKOCYTE ESTERASE, URINE AUTO 1+ (NEGATIVE); MUCUS, URINE SMALL (NEGATIVE); NITRITE, URINE AUTO NEGATIVE (NEGATIVE); PROTEIN, URINE AUTO NEGATIVE (NEGATIVE); RBC, URINE AUTO 3 /HPF (0-3); SPECIFIC GRAVITY URINE AUTO 1.011 (1.002-1.035); SQUAMOUS EPITHELIAL CELL UR AU 1 /HPF (0-6); UROBILINOGEN, URINE AUTO 0.2 mg/dL (0.0-2.0); WBC, URINE AUTO 2 /HPF (0-3)
[2020-01-18 19:09] LABS: BLOOD UREA NITROGEN 7 MG/DL (7-18); CALCIUM LEVEL 9.2 MG/DL (8.5-10.1); CARBON DIOXIDE LEVEL 23 MEQ/L (21-32); CHLORIDE LEVEL 110 MEQ/L (98-107); CREATININE FOR GFR 0.93 MG/DL (0.55-1.30); GLOMERULAR FILTRATION RATE > 60.0 (>58); GLUCOSE, FASTING 112 MG/DL (70-100); POTASSIUM SERUM 3.8 MEQ/L (3.5-5.1); SODIUM LEVEL 140 MEQ/L (136-145)
[2020-01-18 19:20] VITALS: BP 165/90
[2020-01-18] MEDS ORDERED: lisinopriL 10 MG TAB PO ONE (19:30)
[2020-01-18 19:33] VITALS: BP 165/90
--- NOTE | 2020-01-21 08:47 | ECGEPIP ---
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
== END 2020-01-18 19:45 | disposition home or self-care (01) ==
LOC: M ED 16:10
DX: I10 Essential (primary) hypertension (principal); F41.9 Anxiety disorder, unspecified; J45.909 Unspecified asthma, uncomplicated; F17.200 Nicotine dependence, unspecified, uncomplicated

== ENCOUNTER 2020-05-28 23:01 | Emergency (ER) | payer OTHER ==
[~2020-05-28] VITALS: Ht 172.7 cm; Wt 126.0 kg
[2020-05-28 23:03] VITALS: BP 133/85
== END 2020-05-29 00:30 | disposition home or self-care (01) ==
LOC: M ED 23:01
DX: H00.024 Hordeolum internum left upper eyelid (principal); Z88.0 Allergy status to penicillin; Z88.1 Allergy status to other antibiotic agents; Z88.2 Allergy status to sulfonamides; Z88.5 Allergy status to narcotic agent; Z88.8 Allergy status to other drugs, medicaments and biological substances; Z91.041 Radiographic dye allergy status; Z87.891 Personal history of nicotine dependence

== ENCOUNTER 2020-07-04 13:38 | Emergency (ER) | payer OTHER ==
[~2020-07-04] VITALS: Ht 170.2 cm; Wt 125.3 kg
[2020-07-04] MEDS ORDERED: MUCI600T31 PO (14:34)
[2020-07-04] MEDS ORDERED: AFRI0.058 (14:34)
[2020-07-04 15:29] VITALS: BP 133/85
== END 2020-07-04 15:34 | disposition home or self-care (01) ==
LOC: M ED 13:38
DX: U07.1 COVID-19 (principal); R09.81 Nasal congestion; Z88.0 Allergy status to penicillin; Z88.2 Allergy status to sulfonamides; Z88.5 Allergy status to narcotic agent; Z88.8 Allergy status to other drugs, medicaments and biological substances; Z91.041 Radiographic dye allergy status

== ENCOUNTER 2020-09-02 13:03 | Observation (INO) | payer OTHER ==
[~2020-09-02] VITALS: Ht 170.2 cm; Wt 122.2 kg
[~2020-09-02 13:03] MED LIST changes: +AFRI0.058; -DOXY100C37 PO; +DOXY1CAP62 PO; +MUCI600T31 PO
[2020-09-02] MEDS ORDERED: ALBU8.5H INH (13:10)
[2020-09-02] MEDS ORDERED: FLUTISP NARES (13:10)
[2020-09-02] MEDS ORDERED: ONDA-83 PO (13:10)
[2020-09-02] MEDS ORDERED: HYDR-3363 PO (13:10)
--- NOTE | 2020-09-02 14:16 | REP ---
INDICATION: VERTIGO, L ARM TINGLING, POSS TIA. COMPARISON: 08/07/2019 TECHNIQUE: 4.5 mm contiguous transaxial sections were obtained from the skull base to the cerebral convexities with thin cuts through the posterior fossa without the administration of intravenous contrast. FINDINGS: The ventricles and sulci are consistent with the patient's age. There are no extra-axial fluid collections. There is no mass effect. The deep cerebral white matter is consistent with the patient's age. The orbital and petrous structures, cerebellopontine angles, and posterior fossa are unremarkable. The sella turcica, cavernous, and paracavernous structures are essentially unremarkable. The visualized portions of the paranasal sinuses and mastoid air cells are clear. Images of the skull base show no gross abnormality. IMPRESSION: Essentially unremarkable CT examination of the brain. No change from the prior exam. <Electronically signed by Subhash Licona > 09/02/20 [id number]
[2020-09-02 14:38] LABS: BASO # 0.1 10^3/uL (0.0-0.2); BASO % 0.7 % (0.0-1.0); EOS # 0.2 10^3/uL (0.0-0.5); HEMATOCRIT 39.5 % (36.0-47.0); HEMOGLOBIN 12.8 g/dl (12.0-15.5); LYMPH # 2.2 10^3/uL (1.5-5.0); LYMPH % 24.3 % (24.0-44.0); MEAN CORPUSCULAR HEMOGLOBIN 27.2 pg (27.0-33.0); MEAN CORPUSCULAR HGB CONC 32.4 g/dl (32.0-36.5); MONO # 0.7 10^3/uL (0.0-0.8); MONO % 7.2 % (2.0-8.0); NEUTROPHILS # 6.1 10^3/uL (1.5-8.5); NEUTROPHILS % 65.4 % (36.0-66.0); PLATELET COUNT, AUTOMATED 273 10^3/uL (150-450); WHITE BLOOD COUNT 9.2 10^3/uL (4.0-10.0)
--- NOTE | 2020-09-02 14:40 | REP ---
INDICATION: PALPITATIONS. COMPARISON: Multiple TECHNIQUE: PA and lateral FINDINGS: The superior mediastinal structures are midline. The cardiac silhouette is unremarkable in size, shape, and position. The diaphragmatic surfaces of the lungs are regular, and the costophrenic angles are clear. The pulmonary zhang are clear. The imaged osseous structures are intact. IMPRESSION: There is no acute cardiopulmonary disease. <Electronically signed by Subhash Licona > 09/02/20 [id number]
[2020-09-02 14:49] LABS: INR 0.91; PROTHROMBIN TIME 12.4 SECONDS (12.5-14.3)
[2020-09-02 15:10] LABS: ERYTHROCYTE SEDIMENTATION RATE 4 mm/hr (0-20)
[2020-09-02 15:12] LABS: ALBUMIN 4.3 GM/DL (3.2-5.2); ALT/SGPT 26 U/L (12-78); BILIRUBIN,DIRECT 0.2 MG/DL (0.0-0.2); BILIRUBIN,TOTAL 0.7 MG/DL (0.2-1.0); BLOOD UREA NITROGEN 10 MG/DL (7-18); CALCIUM LEVEL 8.5 MG/DL (8.5-10.1); CARBON DIOXIDE LEVEL 25 MEQ/L (21-32); CHLORIDE LEVEL 109 MEQ/L (98-107); CHOLESTEROL LEVEL 123 MG/DL (<200); CK-MB VALUE MASS < 1.0 NG/ML (<3.6); CPK CREATINE PHOSPHOKINASE 133 U/L (26-192); CREATININE FOR GFR 0.88 MG/DL (0.55-1.30); GLOMERULAR FILTRATION RATE > 60.0 (>58); GLUCOSE, FASTING 112 MG/DL (70-100); HDL CHOLESTEROL 20 MG/DL (>40); LDL CHOLESTEROL 38 MG/DL (<100); MB/CK RELATIVE INDEX 0.75 (< OR =4); NON-HDL-C 103 MG/DL; POTASSIUM SERUM 3.9 MEQ/L (3.5-5.1); SODIUM LEVEL 139 MEQ/L (136-145); TOTAL PROTEIN 7.5 GM/DL (6.4-8.2); TRIGLYCERIDES LEVEL 326 MG/DL (<150); TROPONIN I < 0.02 NG/ML (< 0.10)
[2020-09-02] MEDS ORDERED: FAMOTIDINE IV BAG 20 MG in IV 1 EA IV ONE (15:50)
[2020-09-02] MEDS ORDERED: diphenhydrAMINE 50MG/ML VIAL (J1200) IV ONE (15:50)
[2020-09-02] MEDS ORDERED: methylPREDNISolone 40MG 1ML VIAL IV ONE (15:50)
[2020-09-02] MEDS ORDERED: VITA500T37 PO (15:52)
[2020-09-02] MEDS ORDERED: MUPI2OI TOP (15:52)
[2020-09-02] MEDS ORDERED: ONDANSETRON 4 MG TAB PO PRN (16:20)
[2020-09-02] MEDS ORDERED: hydrOXYzine 25 MG TAB PO PRN (16:20)
[2020-09-02] MEDS ORDERED: ALBUTEROL 90 MCG/ACT 8GM HFA INHALER INH PRN (16:20)
[2020-09-02] MEDS ORDERED: FLUTICASONE PROP 0.05% NASAL SPRAY 16 GM (FLONASE) NARES PRN (16:20)
[2020-09-02] MEDS ORDERED: ACETAMINOPHEN TAB 650MG DOSE (2X325MG) PO PRN (16:25)
--- NOTE | 2020-09-02 17:06 | HPEPDOC ---
[facility] [place] Medical History & Physical Date of Admission Sep 02, 2020 Date of Service: Sep 02, 2020 Attending Physician: NIDIA ZIMMER MD History and Physical CHIEF COMPLAINT: Transient palpitations, became shaky, left like an aura and had L eye tingling. HISTORY OF PRESENT ILLNESS: 45 yo W with a history of obesity, anxiety and panic attacks who presented to the ED reporting a transient period of palpitations, feeling shaky, it felt like an aura and then she had L eye tingling and a low grade headache. She denies a history of migraine headaches and was concerned because this was charac teristically different from her panic attacks. By the time she arrived in the ED her symptoms had resolved NIHSS score of 0. She otherwise denied a history of recent illness, fever, chills, rigors, chest pain, abdominal pain, nausea, emesis, vision changes. She did report a history of tinnitus and recently she had an episode of pulsatile tinnitus. She had a head CT that was unremarkable with no acute bleeding, masses or infarct. The ED called Dr. Gupta covering neurology and he recommended admission for observation, MRI brain with vascular imaging and TTE to r/o CVA. CBC, BMP and inflammatory markers were grossly normal and CXR showed no acute pathology. PAST MEDICAL HISTORY: Obesity Panic attacks Ovarian cysts Asthma PAST SURGICAL HISTORY: None SOCIAL HISTORY: Tobacco use: ETOH: Illicit drug use: FAMILY HISTORY: Father from CVA at age 74. ALLERGIES: Please see below. REVIEW OF SYSTEMS: 10 point ROS was otherwise negative except as noted in the HPI HOME MEDICATIONS: Please see below. PHYSICAL EXAMINATION: VITAL SIGNS: see below GENERAL APPEARANCE: NAD, obese. HEENT: NCAT, EOMI, PERRLA, MMM CARDIOVASCULAR: RRR, no m/r/g LUNGS: CTAB ABDOMEN: obese, normoactive sounds, soft, NTND EXTREMITIES: WWP, no LE edema NEUROLOGICAL: CN 3-12 intact, moving all extremities with full strength and tone, speech without dysarthria PSYCHIATRIC: AOx3 LABORATORY DATA: See below. IMAGING: summarized above MICROBIOLOGY: Please see below. ASSESSMENT: 45 yo W with a history of obesity and panic attacks who presented to the ED reporting a transient period of palpitations, feeling shaky, it felt like an aura and then she had L eye tingling and a low grade headache who is now being admitted for observation and to r/o CVA per recommendation of neurology. PLAN: Transient palpitations, feeling shaky, it felt like an aura and then she had L eye tingling and a low grade headache c/f TIA vs. unlikely CVA -TTE -telemetry -ASA 81 -lipid panel -CT head was negative -MRI brain -MRA brain -carotic doppler US -PT for HSE Obesity: complicates care and health -Defer to outpatient follow up with PCP Anxiety with history of panic attacks -continue home hydroxyzine. DVT ppx: lovenox Dispo: medsurg, tele, obs, likely to be discharged tomorrow AM. Vital Signs Vital Signs Date Time Temp Pulse Resp B/P (MAP) Pulse Ox O2 Delivery O2 Flow Rate FiO2 09/02/20 13:16 09/02/20 13:03 98.1 91 20 98 Room Air Laboratory Data Labs 24H Laboratory Tests 2 09/02/20 14:22: Immature Granulocyte % (Auto) 0.4, Neutrophils (%) (Auto) 65.4, Lymphocytes (%) (Auto) 24.3, Monocytes (%) (Auto) 7.2, Eosinophils (%) (Auto) 2.0, Basophils (%) (Auto) 0.7, Neutrophils # (Auto) 6.1, Lymphocytes # (Auto) 2.2, Monocytes # (Auto) 0.7, Eosinophils # (Auto) 0.2, Basophils # (Auto) 0.1, Nucleated Red Blood Cells % (auto) 0.0, Erythrocyte Sedimentation Rate 4, Prothrombin Time 12.4, Prothromb Time International Ratio 0.91, Activated Partial Thromboplast Time 32.0, Anion Gap 5L, Glomerular Filtration Rate > 60.0, Calcium Level 8.5, Total Bilirubin 0.7, Direct Bilirubin 0.2, Aspartate Amino Transf (AST/SGOT) 16, Alanine Aminotransferase (ALT/SGPT) 26, Alkaline Phosphatase 58, Total Creatine Kinase 133, Creatine Kinase MB < 1.0, Creatine Kinase MB Relative Index 0.75, Troponin I < 0.02, C-Reactive Protein, Quantitative 0.30, Total Protein 7.5, Albumin 4.3, Albumin/Globulin Ratio 1.3, Triglycerides Level 326H, Total Cholesterol 123, LDL Cholesterol 38, Non-HDL Cholesterol (LDL + VLDL) 103, Total HDL Cholesterol 20L, Cholesterol/HDL Ratio 6.150H CBC/BMP Laboratory Tests 09/02/20 14:22 Home Medications Scheduled Cyanocobalamin (Vitamin B-12) (Vitamin B-12) 500 Mcg Tablet, 500 MCG PO DAILY Mupirocin (Mupirocin) 2 % Oint...g., 1 APPLIC TOP BID APPLY TO AFFECTED AREAS ON FACE Scheduled PRN Albuterol Sulfate (Albuterol Sulfate Hfa) 8.5 Gm Hfa.aer.ad, 2 PUFF INH Q4H PRN for SOB/WHEEZING Fluticasone Propionate (Fluticasone Propionate) 16 Gm [employer].susp, 1 SPRAY NARES BID PRN for NASAL CONGESTION Hydroxyzine HCl (Hydroxyzine HCl) 25 Mg Tablet, 25 MG PO TID PRN for ANXIETY Ondansetron HCl (Ondansetron HCl) 4 Mg Tablet, 4 MG PO Q6H PRN for NAUSEA OR VOMITING Allergies Coded Allergies: Contrast Media (Verified Allergy, Severe, ANAPHYLAXIS, 08/11/18) Penicillins (Verified Allergy, Intermediate, unknown, 02/15/19) benzonatate (Verified Allergy, Intermediate, vomiting, 03/29/19) morphine (Verified Allergy, Intermediate, "like ", 02/15/19) Sulfa (Sulfonamide Antibiotics) (Verified Allergy, Mild, rash, 02/15/19) hydrocodone (Verified Adverse Reaction, Mild, vomiting, 02/15/19) A-FIB/CHADSVASC A-FIB History Current/History of A-Fib/PAF?: No Current PO Anticoag Therapy: No Age/Risk Factor Scoring CHADSVASC: CHADSVASC Response (Comments) Value Age Risk Factor Age < 65 years old 0 Gender Risk Factor Female 1 Hx of CHF No 0 Hx of HTN No 0 Hx of Stroke/TIA/or VTE No 0 Hx of Diabetes No 0 Hx of Vascular Disease No 0 Total 1 Treatment Treatment ordered: NONE Reason Anticoagulant not given: Not indicated/[id number] NIDIA ZIMMER MD Sep 02, 2020 16:39
--- NOTE | 2020-09-02 17:21 | REP ---
INDICATION: Assess stenosis TECHNIQUE: Carotid ultrasonography was performed bilaterally FINDINGS: Right: CCA systolic: 109 centimeters/second CCA diastolic: 21.7 centimeters/second ICA systolic: 71.7 centimeters/second ICA diastolic: 31.6 centimeters/second ICA CCA ratio: 0.66 Left: CCA systolic: 122 centimeters/second CCA diastolic: 20.9 centimeters/second ICA systolic: 136 centimeters/second ICA diastolic: 50.4 centimeters/second ICA CCA ratio: 1.11 Vertebral artery: Right: Antegrade flow left: Antegrade flow IMPRESSION: According to the SRU criteria there is 50-69% stenosis of the internal carotid artery on the left. <Electronically signed by Subhash Licona > 09/02/20 [id number]
[2020-09-02 17:41] LABS: RSV AMPLIFICATION NEGATIVE (NEGATIVE)
--- NOTE | 2020-09-02 19:19 | REPVR ---
PROCEDURE INFORMATION: Exam: MR Head Without Contrast Exam date and time: 09/02/2020 6:01 PM Age: 45 years old Clinical indication: Dizziness; Patient HX: High BP, heart palpitations, nausea, severe vertigo, and confusion that lasted about 20 minutes and has since subsided, nki, ; additional info: TIA TECHNIQUE: Imaging protocol: MR of the head without contrast. COMPARISON: CT Head without contrast 09/02/2020 2:01 PM FINDINGS: Brain: There is no acute infarct. No acute intracranial hemorrhage is seen. No mass, mass effect, midline shift, or herniation is noted. Incidental note is made of mild benign enlargement of the subarachnoid spaces over the cerebral convexities. Incidental note is made of parafalcine calcifications. Cerebral ventricles: Normal. No hydrocephalus. Pituitary gland and sella: There is a partially empty sella. Bones/joints: Unremarkable. Paranasal sinuses: There are mucous retention cysts in the left maxillary sinus. No air-fluid levels are noted in the sinuses. Mastoid air cells: There is a trace amount of fluid in the mastoid air cells. Orbital cavity: Unremarkable. Soft tissues: Unremarkable. IMPRESSION: No acute infarct or acute intracranial abnormality. Electronically signed by: Julio Schroeder On 09/02/2020 19:19:11 PM
--- NOTE | 2020-09-02 19:20 | REPVR ---
PROCEDURE INFORMATION: Exam: MRA Head Without Contrast; Arteriography Exam date and time: 09/02/2020 6:16 PM Age: 45 years old Clinical indication: Dizziness and giddiness; Patient HX: High BP, heart palpitations, nausea, severe vertigo, and confusion that lasted about 20 minutes and has since subsided, nki, ; additional info: TIA, without contrast only TECHNIQUE: Imaging protocol: Magnetic resonance angiography head without contrast. Exam focused on the arteries. COMPARISON: CT Head without contrast 09/02/2020 2:01 PM FINDINGS: ANTERIOR CIRCULATION: Right internal carotid artery: Intracranial segment is patent with no significant stenosis. No aneurysm. Right middle cerebral artery: No occlusion or significant stenosis. No aneurysm. Right anterior cerebral artery: A1 segment of right anterior cerebral artery extremely small in caliber likely anatomical variant. Left internal carotid artery: Intracranial segment is patent with no significant stenosis. No aneurysm. Left middle cerebral artery: No occlusion or significant stenosis. No aneurysm. Left anterior cerebral artery: No occlusion or significant stenosis. No aneurysm. POSTERIOR CIRCULATION: Right vertebral artery: No occlusion or significant stenosis. No aneurysm. Left vertebral artery: No occlusion or significant stenosis. No aneurysm. Basilar artery: No occlusion or significant stenosis. No aneurysm. Right posterior cerebral artery: No occlusion or significant stenosis. No aneurysm. Left posterior cerebral artery: No occlusion or significant stenosis. No aneurysm. IMPRESSION: No stenosis or occlusion. Electronically signed by: Keyon Mitchell On 09/02/2020 19:20:18 PM
[2020-09-02 19:55] VITALS: BP 147/94
[2020-09-02] MEDS: ASPIRIN 81 MG CHEW TABLET PO SCH (20:58)
[2020-09-02] MEDS: MUPIROCIN 2% OINT 22 GM TUBE TOP SCH (21:00)
[2020-09-03] VITALS: BP 132/88
[2020-09-03 04:45] VITALS: BP 124/79
[2020-09-03 06:00] VITALS: BP 130/79
[2020-09-03 06:29] LABS: HEMATOCRIT 37.8 % (36.0-47.0); HEMOGLOBIN 12.1 g/dl (12.0-15.5); MEAN CORPUSCULAR HEMOGLOBIN 27.2 pg (27.0-33.0); MEAN CORPUSCULAR VOLUME 84.9 fl (80.0-96.0); PLATELET COUNT, AUTOMATED 239 10^3/uL (150-450); RED BLOOD COUNT 4.45 10^6/uL (4.00-5.40); WHITE BLOOD COUNT 6.5 10^3/uL (4.0-10.0)
[2020-09-03 07:00] LABS: BLOOD UREA NITROGEN 10 MG/DL (7-18); CARBON DIOXIDE LEVEL 27 MEQ/L (21-32); CHLORIDE LEVEL 110 MEQ/L (98-107); CREATININE FOR GFR 0.82 MG/DL (0.55-1.30); GLOMERULAR FILTRATION RATE > 60.0 (>58); GLUCOSE, FASTING 100 MG/DL (70-100); SODIUM LEVEL 141 MEQ/L (136-145)
[2020-09-03] MEDS ORDERED: ASPI81CH8 PO (08:24)
[2020-09-03] MEDS ORDERED: ATOR40TA75 PO (08:24)
[2020-09-03] MEDS ORDERED: CYANOCOBALAMIN 500 MCG TAB PO SCH (09:00)
[2020-09-03] MEDS: ENOXAPARIN 40MG/0.4ML SYRINGE (J1650 PER 10MG) SC SCH ×2 (09:00→09:56)
--- NOTE | 2020-09-03 09:07 | DS.PDOC ---
Discharge Summary General Date of Admission Sep 02, 2020 at 13:04 Date of Discharge 09/03/2020 Attending Physician: NIDIA ZIMMER MD Discharge Summary PROCEDURES PERFORMED DURING STAY: None ADMITTING DIAGNOSES: TIA DISCHARGE DIAGNOSES: TIA Obesity History of anxiety and panic attacks History of Ovarian cysts Asthma COMPLICATIONS/CHIEF COMPLAINT: Hypertension,Tia. HISTORY OF PRESENT ILLNESS: 45 yo W with a history of obesity, anxiety and panic attacks who presented to the ED reporting a transient period of palpitations, feeling shaky, it felt like an aura and then she had L eye tingling and a low grade headache. She denied a history of migraine headaches and was concerned because this was characteristically different from her panic attacks. HOSPITAL COURSE: By the time she arrived in the ED her symptoms had resolved NIHSS score of 0. She otherwise denied a history of recent illness, fever, chills, rigors, chest pain, abdominal pain, nausea, emesis, vision changes. She did report a history of tinnitus and recently she had had an episode of pulsatile tinnitus. She had a head CT that was unremarkable with no acute bleeding, masses or infarct. The ED called Dr. Gupta covering neurology and he recommended admission for observation, MRI brain with vascular imaging and TTE to r/o CVA. CBC, BMP and inflammatory markers were grossly normal and CXR showed no acute pathology. MRI brain, MRA brain and carotid US were all within normal limits without evidence of infarction, occlusion or clinically significant stenoses. I should note that her L ICA did have 50-69% stenosis noted and she was admitted with a TIA and therefore recommend PCP further evaluation and potential referral to vascular surgery if indicated. She is now being discharged home to follow up with her PCP and has been started on daily ASA 81 and lipitor 40mg. Telemetry remained within normal limits and TTE was pending at time of discharge. DISCHARGE MEDICATIONS: Please see below. ALLERGIES: Please see below. PHYSICAL EXAMINATION ON DISCHARGE: VITAL SIGNS: Please see below. GENERAL APPEARANCE: NAD, obese. HEENT: NCAT, EOMI, PERRLA, MMM CARDIOVASCULAR: RRR, no m/r/g LUNGS: CTAB ABDOMEN: obese, normoactive sounds, soft, NTND EXTREMITIES: WWP, no LE edema NEUROLOGICAL: CN 3-12 intact, moving all extremities with full strength and tone, speech without dysarthria PSYCHIATRIC: AOx3 LABORATORY DATA: Please see below. IMAGING: CXR: The superior mediastinal structures are midline. The cardiac silhouette is unremarkable in size, shape, and position. The diaphragmatic surfaces of the lungs are regular, and the costophrenic angles are clear. The pulmonary zhang are clear. The imaged osseous structures are intact. IMPRESSION: There is no acute cardiopulmonary disease. CT head: The ventricles and sulci are consistent with the patient's age. There are no extra-axial fluid collections. There is no mass effect. The deep cerebral white matter is consistent with the patient's age. The orbital and petrous structures, cerebellopontine angles, and posterior fossa are unremarkable. The sella turcica, cavernous, and paracavernous structures are essentially unremarkable. The visualized portions of the paranasal sinuses and mastoid air cells are clear. Images of the skull base show no gross abnormality. IMPRESSION: Essentially unremarkable CT examination of the brain. No change from the prior exam. MRI brain: Brain: There is no acute infarct. No acute intracranial hemorrhage is seen. No mass, mass effect, midline shift, or herniation is noted. Incidental note is made of mild benign enlargement of the subarachnoid spaces over the cerebral convexities. Incidental note is made of parafalcine calcifications. Cerebral ventricles: Normal. No hydrocephalus. Pituitary gland and sella: There is a partially empty sella. Bones/joints: Unremarkable. Paranasal sinuses: There are mucous retention cysts in the left maxillary sinus. No air-fluid levels are noted in the sinuses. Mastoid air cells: There is a trace amount of fluid in the mastoid air cells. Orbital cavity: Unremarkable. Soft tissues: Unremarkable. IMPRESSION: No acute infarct or acute intracranial abnormality. MRA brain: ANTERIOR CIRCULATION: Right internal carotid artery: Intracranial segment is patent with no significant stenosis. No aneurysm. Right middle cerebral artery: No occlusion or significant stenosis. No aneurysm. Right anterior cerebral artery: A1 segment of right anterior cerebral artery extremely small in caliber likely anatomical variant. Left internal carotid artery: Intracranial segment is patent with no significant stenosis. No aneurysm. Left middle cerebral artery: No occlusion or significant stenosis. No aneurysm. Left anterior cerebral artery: No occlusion or significant stenosis. No aneurysm. POSTERIOR CIRCULATION: Right vertebral artery: No occlusion or significant stenosis. No aneurysm. Left vertebral artery: No occlusion or significant stenosis. No aneurysm. Basilar artery: No occlusion or significant stenosis. No aneurysm. Right posterior cerebral artery: No occlusion or significant stenosis. No aneurysm. Left posterior cerebral artery: No occlusion or significant stenosis. No aneurysm. IMPRESSION: No stenosis or occlusion. Carotid US: FINDINGS: Right: CCA systolic: 109 centimeters/second CCA diastolic: 21.7 centimeters/second ICA systolic: 71.7 centimeters/second ICA diastolic: 31.6 centimeters/second ICA CCA ratio: 0.66 Left: CCA systolic: 122 centimeters/second CCA diastolic: 20.9 centimeters/second ICA systolic: 136 centimeters/second ICA diastolic: 50.4 centimeters/second ICA CCA ratio: 1.11 Vertebral artery: Right: Antegrade flow left: Antegrade flow IMPRESSION: According to the SRU criteria there is 50-69% stenosis of the internal carotid artery on the left. PROGNOSIS: Good ACTIVITY: As tolerated DIET: regular DISCHARGE PLAN: Home with PCP follow up. DISPOSITION: Home with PCP follow up. DISCHARGE INSTRUCTIONS: Please follow up with your PCP within 1 week of hospital discharge. ITEMS TO FOLLOWUP ON ON OUTPATIENT: TIA L ICA 50-69% stenosis DISCHARGE CONDITION: Stable. TIME SPENT ON DISCHARGE: 45 minutes. Vital Signs/I&Os Vital Signs Date Time Temp Pulse Resp B/P (MAP) Pulse Ox O2 Delivery O2 Flow Rate FiO2 09/03/20 06:00 97.5 84 19 130/79 (96) 99 Room Air I&O- Last 24 Hours up to 6 AM 09/03/20 06:00 Intake Total 750 ml Balance 750 ml Laboratory Data Labs 24H Laboratory Tests 2 09/02/20 14:22: Immature Granulocyte % (Auto) 0.4, Neutrophils (%) (Auto) 65.4, Lymphocytes (%) (Auto) 24.3, Monocytes (%) (Auto) 7.2, Eosinophils (%) (Auto) 2.0, Basophils (%) (Auto) 0.7, Neutrophils # (Auto) 6.1, Lymphocytes # (Auto) 2.2, Monocytes # (Auto) 0.7, Eosinophils # (Auto) 0.2, Basophils # (Auto) 0.1, Nucleated Red Blood Cells % (auto) 0.0, Erythrocyte Sedimentation Rate 4, Prothrombin Time 12.4, Prothromb Time International Ratio 0.91, Activated Partial Thromboplast Time 32.0, Anion Gap 5L, Glomerular Filtration Rate > 60.0, Calcium Level 8.5, Total Bilirubin 0.7, Direct Bilirubin 0.2, Aspartate Amino Transf (AST/SGOT) 16, Alanine Aminotransferase (ALT/SGPT) 26, Alkaline Phosphatase 58, Total Creatine Kinase 133, Creatine Kinase MB < 1.0, Creatine Kinase MB Relative Index 0.75, Troponin I < 0.02, C-Reactive Protein, Quantitative 0.30, Total Protein 7.5, Albumin 4.3, Albumin/Globulin Ratio 1.3, Triglycerides Level 326H, Total Cholesterol 123, LDL Cholesterol 38, Non-HDL Cholesterol (LDL + VLDL) 103, Total HDL Cholesterol 20L, Cholesterol/HDL Ratio 6.150H 09/02/20 16:22: Coronavirus (COVID-19)(PCR) NEGATIVE, Influenza Type A (RT-PCR) NEGATIVE, Influenza Type B (RT-PCR) NEGATIVE, Respiratory Syncytial Virus (PCR) NEGATIVE 09/03/20 05:41: Nucleated Red Blood Cells % (auto) 0.0, Anion Gap 4L, Glomerular Filtration Rate > 60.0, Calcium Level 8.0L CBC/BMP Laboratory Tests 09/02/20 14:22 09/03/20 05:41 Discharge Medications Scheduled Aspirin (Children's Aspirin) 81 Mg Tab.chew, 81 MG PO DAILY Atorvastatin Calcium (Atorvastatin Calcium) 40 Mg Tablet, 1 TAB PO DAILY Cyanocobalamin (Vitamin B-12) (Vitamin B-12) 500 Mcg Tablet, 500 MCG PO DAILY, (Reported) Mupirocin (Mupirocin) 2 % Oint...g., 1 APPLIC TOP BID, (Reported) APPLY TO AFFECTED AREAS ON FACE Scheduled PRN Albuterol Sulfate (Albuterol Sulfate Hfa) 8.5 Gm Hfa.aer.ad, 2 PUFF INH Q4H PRN for SOB/WHEEZING, (Reported) Fluticasone Propionate (Fluticasone Propionate) 16 Gm [place].susp, 1 SPRAY NARES BID PRN for NASAL CONGESTION, (Reported) Hydroxyzine HCl (Hydroxyzine HCl) 25 Mg Tablet, 25 MG PO TID PRN for ANXIETY, (Reported) Ondansetron HCl (Ondansetron HCl) 4 Mg Tablet, 4 MG PO Q6H PRN for NAUSEA OR VOMITING, (Reported) Allergies Coded Allergies: Contrast Media (Verified Allergy, Severe, ANAPHYLAXIS, 08/11/18) Penicillins (Verified Allergy, Intermediate, unknown, 02/15/19) benzonatate (Verified Allergy, Intermediate, vomiting, 03/29/19) morphine (Verified Allergy, Intermediate, "like ", 02/15/19) Sulfa (Sulfonamide Antibiotics) (Verified Allergy, Mild, rash, 02/15/19) hydrocodone (Verified Adverse Reaction, Mild, vomiting, 02/15/19) NIDIA ZIMMER MD Sep 03, 2020 08:22
[2020-09-03] MEDS: ASPIRIN 81 MG CHEW TABLET PO SCH (09:56)
[2020-09-03] MEDS: MUPIROCIN 2% OINT 22 GM TUBE TOP SCH (09:56)
[2020-09-03 10:03] VITALS: BP 124/79
--- NOTE | 2020-09-03 14:23 | ECGEPIP ---
[facility] - ED Test Date: 2020-09-02 Pat Name: QUE DAWKINS Department: Room: [place] [address] Gender: Female Account Support Manager: MIRANDA : [id number] Requested By: Maria Stewart PA-C Order Number: [id number] Reading MD: Griselda Gloria Measurements Intervals [place] Rate: 83 P: 55 OK: 158 QRS: 58 QRSD: 82 T: 48 QT: 400 QTc: 470 Interpretive Statements Normal sinus rhythm decreased rate 01/18/20 Electronically Signed on 09-03-2020 14:23:10 EDT by Griselda Gloria
== END 2020-09-03 11:33 | disposition home or self-care (01) ==
LOC: M ED 13:03 → M ED INP 13:04 → ENRESERV 16:27 → EDBEDREQ 19:51 → M MSPAV 20:05
PROVIDERS: ADMIT Internal Medicine; ATTEND Internal Medicine
DX: G45.9 Transient cerebral ischemic attack, unspecified (principal); E66.9 Obesity, unspecified; Z68.41 Body mass index [BMI] 40.0-44.9, adult; F41.0 Panic disorder [episodic paroxysmal anxiety]; J45.909 Unspecified asthma, uncomplicated; Z87.42 Personal history of other diseases of the female genital tract; R29.700 NIHSS score 0; H93.A9 Pulsatile tinnitus, unspecified ear; R00.2 Palpitations; R51.9 Headache, unspecified; R20.2 Paresthesia of skin; Z79.899 Other long term (current) drug therapy; Z79.82 Long term (current) use of aspirin; Z91.041 Radiographic dye allergy status; Z88.0 Allergy status to penicillin; Z88.8 Allergy status to other drugs, medicaments and biological substances; Z88.5 Allergy status to narcotic agent; Z88.2 Allergy status to sulfonamides

== ENCOUNTER → 2020-12-07 | Outpatient (REF) | payer OTHER ==
[~2020-12-07] MED LIST changes: +ALBU8.5H INH; +ASPI81CH8 PO; +ATOR40TA75 PO; +FLUTISP NARES; +HYDR-3363 PO; +MUPI2OI TOP; +ONDA-83 PO; +VITA500T37 PO
== END ==
LOC: M WUC 19:35
PROVIDERS: ATTEND Physician Assistant
DX: J20.9 Acute bronchitis, unspecified (principal)

== ENCOUNTER 2021-01-21 23:07 | Emergency (ER) | payer OTHER ==
[~2021-01-21] VITALS: Ht 172.7 cm; Wt 127.0 kg
[2021-01-21 23:07] VITALS: BP 136/90
[~2021-01-21 23:07] MED LIST changes: +DOXY-443 PO; -DOXY1CAP62 PO
[2021-01-21] MEDS ORDERED: IBUP80TA PO (23:13)
--- OUTSIDE RECORDS SUMMARY | 2021-01-22 03:35 | CCD ---
Author Author [facility] Organization [facility] Address Unknown Phone Unavailable Care Team Providers Care President & Founder Name Role Phone Jodi Rivers IMAGER Unavailable Unavailable Rivers, Jodi IMAGER Unavailable Unavailable Rivers, Jodi IMAGER Unavailable Unavailable Rivers, Jodi IMAGER Unavailable Unavailable Rivers, Jodi IMAGER Unavailable Unavailable Rivers, Jodi IMAGER Unavailable Unavailable Rivers, Jodi IMAGER Unavailable Unavailable Rivers, Jodi IMAGER Unavailable Unavailable Rivers, Jodi IMAGER Unavailable Unavailable Rivers, Jodi IMAGER Unavailable Unavailable Rivers, Jodi IMAGER Unavailable Unavailable Rviers, Jodi IMAGER Unavailable Unavailable Rivers, Jodi IMAGER Unavailable Unavailable Xiao CASTAÑEDA MD Unavailable Unavailable Xiao CASTAÑEDA MD Unavailable Unavailable Xiao CASTAÑEDA MD Unavailable Unavailable Xiao CASTAÑEDA MD Unavailable Unavailable Xiao CASTAÑEDA MD Unavailable Unavailable Xiao CASTAÑEDA MD Unavailable Unavailable Xiao CASTAÑEDA MD Unavailable Unavailable Xiao CASTAÑEDA MD Unavailable Unavailable Xiao CASTAÑEDA MD Unavailable Unavailable Xiao CASTAÑEDA MD Unavailable Unavailable Xiao CASTAÑEDA MD Unavailable Unavailable Xiao CASTAÑEDA MD Unavailable Unavailable Xiao CASTAÑEDA MD Unavailable Unavailable Xiao CASTAÑEDA MD Unavailable Unavailable Xiao CASTAÑEDA MD Unavailable Unavailable Xiao CASTAÑEDA MD Unavailable Unavailable Xiao CASTAÑEDA MD Unavailable Unavailable Xiao CASTAÑEDA MD Unavailable Unavailable Xiao CASTAÑEDA MD Unavailable Unavailable Xiao CASTAÑEDA MD Unavailable Unavailable Xiao CASTAÑEDA MD Unavailable Unavailable Xiao CASTAÑEDA MD Unavailable Unavailable Xiao CASTAÑEDA MD Unavailable Unavailable Xiao CASTAÑEDA MD Unavailable Unavailable Xiao CASTAÑEDA MD Unavailable Unavailable Xiao CASTAÑEDA MD Unavailable Unavailable Xiao CASTAÑEDA MD Unavailable Unavailable Xiao CASTAÑEDA MD Unavailable Unavailable Xiao CASTAÑEDA MD Unavailable Unavailable Xiao CASTAÑEDA MD Unavailable Unavailable Xiao CASTAÑEDA MD Unavailable Unavailable Xiao CASTAÑEDA MD Unavailable Unavailable Xiao CASTAÑEDA MD Unavailable Unavailable Xiao CASTAÑEDA MD Unavailable Unavailable Xiao CASTAÑEDA MD Unavailable Unavailable Xiao CASTAÑEDA MD Unavailable Unavailable Xiao CASTAÑEDA MD Unavailable Unavailable Xiao CASTAÑEDA MD Unavailable Unavailable Xiao CASTAÑEDA MD Unavailable Unavailable Xiao CASTAÑEDA MD Unavailable Unavailable Xiao CASTAÑEDA MD Unavailable Unavailable Xiao CASTAÑEDA MD Unavailable Unavailable Xiao CASTAÑEDA MD Unavailable Unavailable Xiao CASTAÑEDA MD Unavailable Unavailable Xiao CASTAÑEDA MD Unavailable Unavailable Xiao CASTAÑEDA MD Unavailable Unavailable Xiao CASTAÑEDA MD Unavailable Unavailable Xiao CASTAÑEDA MD Unavailable Unavailable Xiao CASTAÑEDA MD Unavailable Unavailable Xiao CASTAÑEDA MD Unavailable Unavailable Xiao CASTAÑEDA MD Unavailable Unavailable Xiao CASTAÑEDA MD Unavailable Unavailable Xiao CASTAÑEDA MD Unavailable Unavailable Xiao CASTAÑEDA MD Unavailable Unavailable Xiao CASTAÑEDA MD Unavailable Unavailable Xiao CASTAÑEDA MD Unavailable Unavailable Xiao CASTAÑEDA MD Unavailable Unavailable Xiao CASTAÑEDA MD Unavailable Unavailable Xiao CASTAÑEDA MD Unavailable Unavailable Xiao CASTAÑEDA MD Unavailable Unavailable Xiao CASTAÑEDA MD Unavailable Unavailable Xiao CASTAÑEDA MD Unavailable Unavailable Xiao CASTAÑEDA MD Unavailable Unavailable Xiao CASTAÑEDA MD Unavailable Unavailable Xiao CASTAÑEDA MD Unavailable Unavailable Xiao CASTAÑEDA MD Unavailable Unavailable Xiao CASTAÑEDA MD Unavailable Unavailable Xiao CASTAÑEDA MD Unavailable Unavailable Xiao CASTAÑEDA MD Unavailable Unavailable Xiao CASTAÑEDA MD Unavailable Unavailable Xiao CASTAÑEDA MD Unavailable Unavailable Xiao CASTAÑEDA MD Unavailable Unavailable Xiao CASTAÑEDA MD Unavailable Unavailable Xiao CASTAÑEDA MD Unavailable Unavailable Xiao CASTAÑEDA MD Unavailable Unavailable Xiao CASTAÑEDA MD Unavailable Unavailable Feola, T Azalia PA Unavailable Unavailable Feola, T Azalia PA Unavailable Unavailable Feola, T Azalia PA Unavailable Unavailable Feola, T Azalia PA Unavailable Unavailable Feola, T Azalia PA Unavailable Unavailable Feola, T Azalia PA Unavailable Unavailable Feola, T Azalia PA Unavailable Unavailable Feola, T Azalia PA Unavailable Unavailable Feola, T Azalia PA Unavailable Unavailable Feola, T Azalia PA Unavailable Unavailable Feola, T Azlaia PA Unavailable Unavailable Feola, T Azalia PA Unavailable Unavailable Feola, T Azalia PA Unavailable Unavailable Feola, T Azalia PA Unavailable Unavailable Feola, T Azalia PA Unavailable Unavailable Feola, T Azalia PA Unavailable Unavailable Feola, T Azalia PA Unavailable Unavailable Feola, T Azalia PA Unavailable Unavailable Feola, T Azalia PA Unavailable Unavailable Feola, T Azalia PA Unavailable Unavailable Feola, T Azalia PA Unavailable Unavailable Feola, T Azalia PA Unavailable Unavailable Feola, T Azalia PA Unavailable Unavailable Feola, T Azalia PA Unavailable Unavailable Feola, T Azalia PA Unavailable Unavailable Feola, T Azalia PA Unavailable Unavailable Feola, T Azalia PA Unavailable Unavailable Feola, T Azalia PA Unavailable Unavailable Feola, T Azalia PA Unavailable Unavailable Feola, T Azalia PA Unavailable Unavailable Feola, T Azalia PA Unavailable Unavailable Feola, T Azalia PA Unavailable Unavailable Feola, T Azalia PA Unavailable Unavailable Feola, T Azalia PA Unavailable Unavailable Feola, T Azalia PA Unavailable Unavailable Feola, T Azalia PA Unavailable Unavailable Feola, T Azalia PA Unavailable Unavailable Feola, T Azalia PA Unavailable Unavailable Feola, T Azalia PA Unavailable Unavailable Feola, T Azalia PA Unavailable Unavailable Feola, T Azalia PA Unavailable Unavailable Xiao CASTAÑEDA MD Unavailable Unavailable Xiao CASTAÑEDA MD Unavailable Unavailable Xiao CASTAÑEDA MD Unavailable Unavailable Xiao CASTAÑEDA MD Unavailable Unavailable Xiao CASTAÑEDA MD Unavailable Unavailable Xiao CASTAÑEDA MD Unavailable Unavailable Xiao CASTAÑEDA MD Unavailable Unavailable Xiao CASTAÑEDA MD Unavailable Unavailable Xiao CASTAÑEDA MD Unavailable Unavailable Xiao CASTAÑEDA MD Unavailable Unavailable Xiao CASTAÑEDA MD Unavailable Unavailable Xiao CASTAÑEDA MD Unavailable Unavailable Xiao CASTAÑEDA MD Unavailable Unavailable Xiao CASTAÑEDA MD Unavailable Unavailable Xiao CASTAÑEDA MD Unavailable Unavailable Xiao CASTAÑEDA MD Unavailable Unavailable Xiao CASTAÑEDA MD Unavailable Unavailable Xiao CASTAÑEDA MD Unavailable Unavailable Xiao CASTAÑEDA MD Unavailable Unavailable Xiao CASTAÑEDA MD Unavailable Unavailable Xiao CASTAÑEDA MD Unavailable Unavailable Xiao CASTAÑEDA MD Unavailable Unavailable Xiao CASTAÑEDA MD Unavailable Unavailable Xiao CASTAÑEDA MD Unavailable Unavailable Xiao CASTAÑEDA MD Unavailable Unavailable Xiao CASTAÑEDA MD Unavailable Unavailable Xiao CASTAÑEDA MD Unavailable Unavailable Xiao CASTAÑEDA MD Unavailable Unavailable Xiao CASTAÑEDA MD Unavailable Unavailable Xiao CASTAÑEDA MD Unavailable Unavailable Xiao CASTAÑEDA MD Unavailable Unavailable Xiao CASTAÑEDA MD Unavailable Unavailable Xiao CASTAÑEDA MD Unavailable Unavailable Xiao CASTAÑEDA MD Unavailable Unavailable Xiao CASTAÑEDA MD Unavailable Unavailable Xiao CASTAÑEDA MD Unavailable Unavailable Xiao CASTAÑEDA MD Unavailable Unavailable Xiao CASTAÑEDA MD Unavailable Unavailable Xiao CASTAÑEDA MD Unavailable Unavailable Xiao CASTAÑEDA MD Unavailable Unavailable Xiao CASTAÑEDA MD Unavailable Unavailable Xiao CASTAÑEDA MD Unavailable Unavailable Xiao CASTAÑEDA MD Unavailable Unavailable Xiao CASTAÑEDA MD Unavailable Unavailable Xiao CASTAÑEDA MD Unavailable Unavailable Xiao CASTAÑEDA MD Unavailable Unavailable Xiao CASTAÑEDA MD Unavailable Unavailable Xiao CASTAÑEDA MD Unavailable Unavailable Xiao CASTAÑEDA MD Unavailable Unavailable Xiao CASTAÑEDA MD Unavailable Unavailable Xiao CASTAÑEDA MD Unavailable Unavailable Xiao CASTAÑEDA MD Unavailable Unavailable Xiao CASTAÑEDA MD Unavailable Unavailable Xiao CASTAÑEDA MD Unavailable Unavailable Xiao CASTAÑEDA MD Unavailable Unavailable Xiao CASTAÑEDA MD Unavailable Unavailable Xiao CASTAÑEDA MD Unavailable Unavailable Xiao CASTAÑEDA MD Unavailable Unavailable Xiao CASTAÑEDA MD Unavailable Unavailable Xiao CASTAÑEDA MD Unavailable Unavailable Xiao CASTAÑEDA MD Unavailable Unavailable Xiao CASTAÑEDA MD Unavailable Unavailable Xiao CASTAÑEDA MD Unavailable Unavailable Xiao CASTAÑEDA MD Unavailable Unavailable Xiao CASTAÑEDA MD Unavailable Unavailable Xiao CASTAÑEDA MD Unavailable Unavailable Xiao CASTAÑEDA MD Unavailable Unavailable Xiao CASTAÑEDA MD Unavailable Unavailable Xiao CASTAÑEDA MD Unavailable Unavailable Xiao CASTAÑEDA MD Unavailable Unavailable Xiao CASTAÑEDA MD Unavailable Unavailable Xiao CASTAÑEDA MD Unavailable Unavailable Xiao CASTAÑEDA MD Unavailable Unavailable Xiao CASTAÑEDA MD Unavailable Unavailable Xiao CASTAÑEDA MD Unavailable Unavailable Xiao CASTAÑEDA MD Unavailable Unavailable Skyla OBANDO Unavailable Unavailable COLE, G EDWARD RPA Unavailable Unavailable COLE, G EDWARD RPA Unavailable Unavailable COLE, G EDWARD RPA Unavailable Unavailable COLE, G EDWARD RPA Unavailable Unavailable COLE, G EDWARD RPA Unavailable Unavailable COLE, G EDWARD RPA Unavailable Unavailable COLE, G EDWARD RPA Unavailable Unavailable COLE, G EDWARD RPA Unavailable Unavailable COLE, G EDWARD RPA Unavailable Unavailable COLE, G EDWARD RPA Unavailable Unavailable COLE, G EDWARD RPA Unavailable Unavailable COLE, G EDWARD RPA Unavailable Unavailable COLE, G EDWARD RPA Unavailable Unavailable COLE, G EDWARD RPA Unavailable Unavailable COLE, G EDWARD RPA Unavailable Unavailable COLE, G EDWARD RPA Unavailable Unavailable COLE, G EDWARD RPA Unavailable Unavailable COLE, G EDWARD RPA Unavailable Unavailable COLE, G EDWARD RPA Unavailable Unavailable COLE, G EDWARD RPA Unavailable Unavailable COLE, G EDWARD RPA Unavailable Unavailable COLE, G EDWARD RPA Unavailable Unavailable COLE, G EDWARD RPA Unavailable Unavailable COLE, G EDWARD RPA Unavailable Unavailable COLE, G EDWARD RPA Unavailable Unavailable COLE, G EDWARD RPA Unavailable Unavailable COLE, G EDWARD RPA Unavailable Unavailable COLE, G EDWARD RPA Unavailable Unavailable COLE, G EDWARD RPA Unavailable Unavailable COLE, G EDWARD RPA Unavailable Unavailable COLE, G EDWARD RPA Unavailable Unavailable COLE, G EDWARD RPA Unavailable Unavailable COLE, G EDWARD RPA Unavailable Unavailable COLE, G EDWARD RPA Unavailable Unavailable COLE, G EDWARD RPA Unavailable Unavailable COLE, G EDWARD RPA Unavailable Unavailable COLE, G EDWARD RPA Unavailable Unavailable RING, K SALLIE PA Unavailable Unavailable RING, K SALLIE PA Unavailable Unavailable RING, K SALLIE PA Unavailable Unavailable RING, K SALLIE PA Unavailable Unavailable RING, K SALLIE PA Unavailable Unavailable RING, K SALLIE PA Unavailable Unavailable RING, K SALLIE PA Unavailable Unavailable RING, K SALLIE PA Unavailable Unavailable RING, K SALLIE PA Unavailable Unavailable RING, K SALLIE PA Unavailable Unavailable RING, K SALLIE PA Unavailable Unavailable RING, K SALLIE PA Unavailable Unavailable RING, K SALLIE PA Unavailable Unavailable RING, K SALLIE PA Unavailable Unavailable RING, K SALLIE PA Unavailable Unavailable RING, K SALLIE PA Unavailable Unavailable RING, K SALLIE PA Unavailable Unavailable RING, K SALLIE PA Unavailable Unavailable RING, K SALLIE PA Unavailable Unavailable RING, K SALLIE PA Unavailable Unavailable RING, K SALLIE PA Unavailable Unavailable Del Otro, M Christopher PA-C Unavailable Unavailable Del Toro, M Christopher PA-C Unavailable Unavailable Del Troo, M Christopher PA-C Unavailable Unavailable Del Toro, M Christopher PA-C Unavailable Unavailable Del Toro, M Christopher PA-C Unavailable Unavailable Del Toro, M Christopher PA-C Unavailable Unavailable Del Toro, M Christopher PA-C Unavailable Unavailable Del Toro, M Christopher PA-C Unavailable Unavailable Del Toro, M Christopher PA-C Unavailable Unavailable Del Toro, M Christopher PA-C Unavailable Unavailable Del Toro, M Christopher PA-C Unavailable Unavailable Del Toro, M Christopher PA-C Unavailable Unavailable Del Toro, M Christopher PA-C Unavailable Unavailable Del Toro, M Christopher PA-C Unavailable Unavailable Del Toro, M Christopher PA-C Unavailable Unavailable Del Toro, M Christopher PA-C Unavailable Unavailable Del Toro, M Christopher PA-C Unavailable Unavailable Del Toro, M Christopher PA-C Unavailable Unavailable Del Toro, M Christopher PA-C Unavailable Unavailable Del Toro, M Christopher PA-C Unavailable Unavailable Del Toro, M Christopher PA-C Unavailable Unavailable Del Toro, M Christopher PA-C Unavailable Unavailable Del Toro, M Christopher PA-C Unavailable Unavailable Del Toro, M Christopher PA-C Unavailable Unavailable Del Toro, M Christopher PA-C Unavailable Unavailable Del Toro, M Christopher PA-C Unavailable Unavailable Re-disclosure Warning The records that you are about to access may contain information from federally-assisted alcohol or drug abuse programs. If such information is present, then the following federally mandated warning applies: This information has been disclosed to you from records protected by federal confidentiality rules (42 CFR part 2). The federal rules prohibit you from making any further disclosure of this information unless further disclosure is expressly permitted by the written consent of the person to whom it pertains or as otherwise permitted by 42 CFR part 2. A general authorization for the release of medical or other information is NOT sufficient for this purpose. The Federal rules restrict any use of the information to criminally investigate or prosecute any alcohol or drug abuse patient.The records that you are about to access may contain highly sensitive health information, the redisclosure of which is protected by Article 27-F of the [facility] Public Health law. If you continue you may have access to information: Regarding HIV / AIDS; Provided by facilities licensed or operated by the [facility] Office of Mental Health; or Provided by the [facility] Office for People With Developmental Disabilities. If such information is present, then the following [facility] mandated warning applies: This information has been disclosed to you from confidential records which are protected by state law. State law prohibits you from making any further disclosure of this information without the specific written consent of the person to whom it pertains, or as otherwise permitted by law. Any unauthorized further disclosure in violation of state law may result in a fine or fpc sentence or both. A general authorization for the release of medical or other information is NOT sufficient authorization for further disc losure. Family History Family Member Name Family Member Gender Family Member Status Date o f Status Description Data Source(s) Unknown Unknown Problem [facility] Encounters Encounter Providers Location Date Indications Data Source(s ) Outpatient Attender: Moustapha Del Toro PA-C 12/24/2020 07:21:04 PM EDT - 12/24/2020 08:51:59 PM EDT [facility] Outpatient Attender: SALLIE Segovia Primary 12/07/2020 03:35:00 PM EDT [facility] ([facility]) Outpatient Attender: Jodi euceda 08/15/2020 03:30:00 PM EDT [facility] ([facility]) Outpatient Attender: ARABELLA COLE RPA 08/13 05:12:03 PM EDT - 08/13/2020 05:58:59 PM EDT [facility] Outpatient Attender: Azalia KHAN 021 06:53:27 PM EDT - 07/26/2020 08:48:39 PM EDT [facility] Outpatient Attender: SALLIE Segovia Primary 07/17/2020 06:35:00 PM EDT [facility] ([facility]) Outpatient Attender: SALLIE Segovia Primary 06/29/2020 03:50:00 PM EDT [facility] ([facility]) Outpatient Attender: KENZIE OBANDOReferrer: JARRETT CASTAÑEDA MD 05/04/2020 12:00:00 AM [facility] Outpatient Attender: JARRETT CASTAÑEDA MD [place] [facility] 03:00:00 PM EST [facility] ([facility] Outpatient Attender: JARRETT CASTAÑEDA MD [place] [facility] 06/2019 08:45:00 AM EST [facility] ([facility] Outpatient Attender: JARRETT CASTAÑEDA MD [place] [facility] 02:30:00 PM EDT [facility] ([facility] Medications Medication Brand Name Start Date Product Form Dose Route Admi nistrative Instructions Pharmacy Instructions Status Indications Reaction Description Data Source(s) 90 mcg/actuation 12/11/2020 12:00:00 AM EDT HFA aerosol inha ler 18 INHALE TWO PUFFS BY MOUTH EVERY 4 HOURS INHALE TWO PUFFS BY MOUTH EVERY 4 HOURS SOLD: 12/11/2020 [facility] 20 mg 12/07/2020 12:00:00 AM EDT tablet 8 TAKE ONE TABLET BY MOUTH TWICE A DAY FOR 4 DAYS TAKE ONE TABLET BY MOUTH TWICE A DAY FOR 4 DAYS SOLD: 2020 [facility] Nebulizer Kit/Tubing/Mouthpiece 12/07/2020 12:00:00 AM EDT completed [facility] ([facility]) . UNIT 12/07/2020 12:00:00 AM EDT Misc 1 DI RECTED DIRECTED SOLD: 12/11/2020 [facility] 200 ACTUAT Albuterol 0.09 MG/ACTUAT Metered Dose Inhal er [Ventolin] Ventolin HFA 12/07/2020 12:00:00 AM EDT ORAL active [facility] ([facility]) Prednisone 20 MG Oral Tablet Prednisone 12/07/2020 12:00:00 AM EDT ORAL active [facility] ([facility]) Hydroxyzine Hydrochloride 25 MG Oral Tablet Hydroxyzine HCL 08/15/2020 12:00:00 AM EDT ORAL active [facility] ([facility]) Mupirocin 0.02 MG/MG Topical Ointment Mupirocin 08/15/2020 12:00:00 AM EDT completed [facility] ([facility]) Levofloxacin 750 MG Oral Tablet Levofloxacin 07/17/2020 12:00:00 AM E DT ORAL completed [facility] ([facility]) Prednisone 20 MG Oral Tablet Prednisone 06/29/2020 12:00:00 AM EDT ORAL completed [facility] ([facility]) 20 mg 03/30/2020 12:00:00 AM EST tablet 10 TAKE ONE TABLET BY MOUTH TWO TIMES A DAY FOR FIVE DAYS TAKE ONE TABLET BY MOUTH TWO TIMES A DAY FOR FIVE DAYS SOLD: 03/31/2020 [facility] 30 mg/5 mL 03/30/2020 12:00:00 AM EST suspension,extended re l 12 hr 89 TAKE 5ML BY MOUTH EVERY 12 HOURS FOR TEN DAYS TAKE 5ML BY MOUTH EVERY 12 HOURS FOR TEN DAYS SOLD: 03/31/2020 [facility] Flonase Allergy Relief Flonase Allergy Relief 03/14/2020 12:00:[address] active [facility] ([facility] Zithromax Z-Joseph Zithromax Z-Joseph 12/03/2019 12:00:00 AM EDT ORAL completed [facility] ([facility] Trazodone Hydrochloride 50 MG Oral Tablet Trazodone HCL 08/23/2019 12:00:00 AM EDT ORAL completed [facility] ([facility] Insurance Providers Payer name Policy type / Coverage type Policy ID Covered alliance party ID Covered alliance party's relationship to turner Policy Turner Plan Information MEDICAID M [id number] Self [id number] [facility] [id number] Self [id number] [facility] [employer]. [id number] Self [id number] [facility] I [id number] Self [id number] [facility]-Med[facility] [id number] ANSI-Medicaid [id number] ANSI-Medicaid [id number] ANSI-Medicaid [id number] ANSI-Medicaid [id number] ANSI-Medicaid [id number] MEDICAID [id number] SP [id number] MEDICAID M [id number] S [id number] [facility] COMMUNITY PLAN [facility] [id number] SP [id number] [facility] O [id number] S [id number] [facility] [id number] SP [id number] SELF PAY ONLY [id number] SP [id number] SELF PAY ONLY [id number] SP [id number] [facility] Commercial [id number] Self [id number] [facility] Health Maintenance Organization (HMO) [id number] Self [id number] SELF PAY ONLY SELF PAY ONLY [id number] Self SELF PAY ONLY SELF PAY ONLY SELF PAY ONLY [id number] Self SELF PAY ONLY [facility] Health Maintenance Organization (HMO) [id number] Self SELF PAY ONLY UNAVAILABLE UNAV AILABLE SELF PAY UNAVAILABLE SP UNAVAILA BLE [facility] [id number] SP [id number] [facility] O [id number] S [id number] [facility] AMERICHOICE [id number] 18 [id number] [facility] [id number] SP [id number] Problems, Conditions, and Diagnoses No Information Surgeries/Procedures Procedure Description Date Indications Data Source(s) OFFICE OUTPATIENT VISIT 15 MINUTES 12/07/2020 12:00:00 AM EDT [facility] ([facility]) OFFICE OUTPATIENT VISIT 15 MINUTES 08/15/2020 12:00:00 AM EDT [facility] ([facility]) OFFICE OUTPATIENT VISIT 15 MINUTES 07/17/2020 12:00:00 AM EDT [facility] ([facility]) OFFICE OUTPATIENT VISIT 15 MINUTES 06/29/2020 12:00:00 AM EDT [facility] ([facility]) Results ID Date Data Source [id number] 12/07/2020 06:23:00 PM EDT [facility] Name Value Range Interpretation Code Description Data Dorothea rce(s) Supporting Document(s) Respiratory pathogens identified [Type] in Nasopharynx by Probe and target amplification method SARS-CoV-2 (COVID 19) [facility] This lab was ordered by [facility] a nd reported by [facility]. ID Date Data Source [id number] 12/07/2020 06:23:00 PM EDT [facility] ([facility]) Name Value Range Interpretation Code Description Data Dorothea rce(s) Supporting Document(s) Respiratory Panel [facility] unable to contact patient. ID Date Data Source [id number] 12/07/2020 12:00:00 AM EDT [facility] Name Value Range Interpretation Code Description Data Dorothea rce(s) Supporting Document(s) SARS-CoV2 Rapid Antigen Negative [facility] This lab was reported by [facility]. ID Date Data Source [id number] 09/02/2020 04:22:00 PM EDT [facility] Name Value Range Interpretation Code Description Data Dorothea rce(s) Supporting Document(s) SARS coronavirus 2 RNA [Presence] in Res piratory specimen by HENRY with probe detection NEGATIVE [facility] This lab was ordered by [facility] a nd reported by [facility]. ID Date Data Source [id number] 07/26/2020 12:00:00 AM EDT [facility] Name Value Range Interpretation Code Description Data Dorothea rce(s) Supporting Document(s) SARS-CoV-2 PCR Nucleic Acid Negative [facility] This lab was ordered by [facility] and reported by [facility] Alistair Archuleta. ID Date Data Source [id number] 06/29/2020 12:00:00 AM EDT [facility] Name Value Range Interpretation Code Description Data Dorothea rce(s) Supporting Document(s) SARS-CoV2 Rapid Antigen Positive [facility] This lab was reported by [facility]. ID Date Data Source [id number] 03/30/2020 12:00:00 AM EST [facility] Name Value Range Interpretation Code Description Data Dorothea rce(s) Supporting Document(s) SARS coronavirus 2 RNA [Presence] in Res piratory specimen by HENRY with probe detection NEGATIVE [place] [place] and reported by [facility] [employer]. ID Date Data Source [id number] 03/30/2020 12:00:00 AM EST [place] Name Value Range Interpretation Code Description Data Dorothea rce(s) Supporting Document(s) Carestart Rapid COVID Antigen Test Negative [place] This lab was reported by [facility] Andrew mast. ID Date Data Source [id number] 01/18/2020 06:30:00 PM EST MEDENT ([facility] Name Value Range Interpretation Code Description Data Dorothea rce(s) Supporting Document(s) Thyrotropin [Units/volume] in Serum or Plasma 1.240 uIU/ML 0. 358-3.740 Normal (applies to non-numeric results) [facility] ID Date Data Source [id number] 01/18/2020 06:30:00 PM EST MEDENT ([facility] Name Value Range Interpretation Code Description Data Dorothea rce(s) Supporting Document(s) Glucose, Fasting 112 mg/dL 70-100 Above high normal M EDENT ([facility] Blood Urea Nitrogen 7 mg/dL 7-18 Normal (applies to non-nume rachel results) MEDENT ([facility] Creatinine For GFR 0.93 mg/dL 0.55-1.30 Normal (applies to non -numeric results) [facility] Potassium Serum 3.8 meq/L 3.5-5.1 Normal (applies to non-numeric results) DORA ([facility] Glomerular Filtration Rate Laboratory test result Normal (applies to non- numeric results) [facility] ) <content>Units are mL/min/1.73 m2</content>
<content></content>
<content>Chronic Kidney Disease Staging per NKF:</content>
<content></content>
<content>Stage I & II GFR >=60 Normal to Mildly Decreased</content>
<content>Stage III GFR 30- 59 Moderately Decreased</content>
<content>Stage IV GFR 15-29 Severely Decreased</content>
<content>Stage V GFR <15 Very Little GFR Left</content>
<content>ESRD GFR <15 on [employer]ARD[employer]IC</content>
<content></content> Sodium Level 140 meq/L 136-145 Normal (applies to non-numeric res ults) MEDENT ([facility] Carbon Dioxide Level 23 meq/L 21-32 Normal (applies to non-num pernell results) SHANONENT ([facility] Anion Gap 7 meq/L 8-16 Below low normal SHANONENT ( [facility] Chloride Level 110 meq/L 98-107 Above high normal MED ENT ([facility] Calcium Level 9.2 mg/dL 8.5-10.1 Normal (applies to non-numeric re sults) MEDENT ([facility] ID Date Data Source [id number] 01/18/2020 06:30:00 PM EST MEDENT ([facility] Name Value Range Interpretation Code Description Data Dorothea rce(s) Supporting Document(s) Appearance, Urine Laboratory test result Normal (applies to non-numeric results) MEDENT ([facility] ) Specific [place] Urine Auto 1.011 1.002-1.035 Norm al (applies to non-numeric results) MEDENT ([facility] ) Color, Urine Laboratory test result Normal (applies to non -numeric results) MEDENT ([facility] PH,Urine 5.0 units 5.0-9.0 Normal (applies to non-numeric resul ts) MEDENT ([facility] Glucose, Urine (Ua) Auto Laboratory test result Normal (applies to non-numeric results) MEDENT ([facility] ) Protein, Urine Auto Laboratory test result Danii l (applies to non-numeric results) MEDENT ([facility] ) Ketone, Urine Auto Laboratory test result Normal (applies to non-numeric results) MEDENT ([facility] ) Nitrite, Urine Auto Laboratory test result Danii l (applies to non-numeric results) MEDENT ([facility] ) Urobilinogen, Urine Auto 0.2 mg/dL 0.0-2.0 Normal (applies to non-numeric results) MEDENT ([facility] ) Bilirubin, Urine Auto Laboratory test result Nor mal (applies to non-numeric results) MEDENT ([facility] ) Leukocyte Esterase, Urine Auto Laboratory test result Abov e high normal MEDENT ([facility] Blood, Urine Blood Laboratory test result Normal (applies to non-numeric results) MEDENT ([facility] ) WBC, Urine Auto 2 /HPF 0-3 Normal (applies to non-numeric results) MEDENT ([facility] RBC, Urine Auto 3 /HPF 0-3 Normal (applies to non-numeric results) MEDENT ([facility] Squamous Epithelial Cell Ur AU 1 /HPF 0-6 N ormal (applies to non-numeric results) MEDENT ([facility] ) Bacteria, Urine Auto Laboratory test result Above high nor mal MEDENT ([facility] Hyaline Cast, Urine Auto 0 /LPF 0-1 Normal (applies to non -numeric results) MEDENT ([facility] Mucus, Urine Laboratory test result Normal (applies to non -numeric results) MEDENT ([facility] ID Date Data Source [id number] 01/18/2020 06:30:00 PM EST MEDENT ([facility] Name Value Range Interpretation Code Description Data Dorothea rce(s) Supporting Document(s) Red Blood Count 4.83 10 4.00-5.40 Normal (applies to non-numeric results) MEDENT ([facility] White Blood Count 9.8 10 4.0-10.0 Normal (applies to non-numeri c results) MEDENT ([facility] Mean Corpuscular Volume 83.6 fl 80.0-96.0 Normal ( applies to non-numeric results) MED[facility] ([facility] Hemoglobin 12.4 g/dL 12.0-15.5 Normal (applies to non-numeric resul ts) MEDENT ([facility] Hematocrit 40.4 % 36.0-47.0 Normal (applies to non-numeric resul ts) MEDENT ([facility] Red Cell Distribution Width 14.9 % 11.5-14.5 Above high normal MEDENT ([facility] Mean Corpuscular HGB Conc 30.7 g/dL 32.0-36.5 Below low normal MEDENT ([facility] Mean Corpuscular Hemoglobin 25.7 pg 27.0-33.0 Below low normal MEDENT ([facility] Lymph % 17.9 % 24.0-44.0 Below low normal MEDENT ( [facility] [place] % 4.3 % 0.0-5.0 Normal (applies to non-numeric resul ts) MEDENT ([facility] Neutrophils % 75.9 % 36.0-66.0 Above high normal MEDE NT ([facility] Platelet Count, Automated 280 10 150-450 Normal (applies to non-numeric results) MEDENT ([facility] ) Immature Granulocyte % 0.5 % 0-3.0 Normal (applies to non-n umeric results) MEDENT ([facility] Eos % 0.7 % 0.0-3.0 Normal (applies to non-numeric resul ts) MEDENT ([facility] Baso % 0.7 % 0.0-1.0 Normal (applies to non-numeric resul ts) MEDENT ([facility] Nucleated Red Blood Cell % 0.0 % 0-0 Normal (applies to n on-numeric results) MEDENT ([facility] Lymph # 1.8 10 1.5-5.0 Normal (applies to non-numeric resul ts) MEDENT ([facility] Neutrophils # 7.5 10 1.5-8.5 Normal (applies to non-numeric re sults) MEDENT ([facility] [place] # 0.4 10 0.0-0.8 Normal (applies to non-numeric resul ts) MEDENT ([facility] Eos # 0.1 10 0.0-0.5 Normal (applies to non-numeric resul ts) MEDENT ([facility] Baso # 0.1 10 0.0-0.2 Normal (applies to non-numeric resul ts) MEDENT ([facility] Procedure Social History Code Duration Value Status Description Data Source(s ) Smoking 12/07/2020 12:00:00 AM EDT Patient is a former smoker completed Patient is a former smoker MEDENT ([facility]) Vital Signs ID Date Data Source UNK Name Value Range Interpretation Code Description Data Source(s) Systolic blood pressure 135 mm[Hg] 135 mm[Hg] M EDENT ([facility]) Diastolic blood pressure 90 mm[Hg] 90 mm[Hg] MEDENT ([place] [facility]) Body mass index (BMI) [Ratio] 38.4 kg/m2 38.4 k g/m2 MEDENT ([place] [facility]) Heart rate 67 /min 67 /min MEDENT ([facility], [facility]) Respiratory rate 16 /min 16 /min MEDENT ( [place] [facility]) Oxygen saturation in Arterial blood by Pulse oximetry 98 % 98 % MEDENT ([place] [facility]) Body temperature 98.3 [degF] 98.3 [degF] MEDENT ([place] [facility]) Body weight 260.00 [lb_av] 260.00 [lb_av] MEDEN T ([place] [facility], [facility]) Body height 69 [in_i] 69 [in_i] [facility] 5'9" Systolic blood pressure 120 mm[Hg] 120 mm[Hg] M EDENT ([place] [facility], [facility]) Diastolic blood pressure 62 mm[Hg] 62 mm[Hg] MEDENT ([place] [facility]) Heart rate 83 /min 83 /min [facility] Respiratory rate 16 /min 16 /min MEDENT ( [place] [facility], [facility]) Oxygen saturation in Arterial blood by Pulse oximetry 98 % 98 % MEDENT ([place] [facility], [facility]) Body temperature 97.8 [degF] 97.8 [degF] MEDENT ([place] [facility], [facility]) Body weight 260.00 [lb_av] 260.00 [lb_av] MEDEN T ([place] [facility], [facility]) Body height 67 [in_i] 67 [in_i] [facility] 5'7" Body mass index (BMI) [Ratio] 40.7 kg/m2 40.7 k g/m2 MEDENT ([place] [facility]) Heart rate 106 /min 106 /min [facility] Diastolic blood pressure 87 mm[Hg] 87 mm[Hg] MEDENT ([facility]) Systolic blood pressure 140 mm[Hg] 140 mm[Hg] M EDENT ([facility], [facility]) Body temperature 98.0 [degF] 98.0 [degF] MEDENT ([facility], [facility]) Respiratory rate 18 /min 18 /min MEDENT ( [facility]) Body weight 265.00 [lb_av] 265.00 [lb_av] MEDEN T ([facility], [facility]) Oxygen saturation in Arterial blood by Pulse oximetry 98 % 98 % MEDENT ([facility], [facility]) Body height 67 [in_i] 67 [in_i] [facility] ([facility] 5'7" Body mass index (BMI) [Ratio] 41.5 kg/m2 41.5 k g/m2 MEDENT ([facility], [facility]) Diastolic blood pressure 85 mm[Hg] 85 mm[Hg] MEDENT ([facility]) Systolic blood pressure 137 mm[Hg] 137 mm[Hg] M EDENT ([facility]) Respiratory rate 20 /min 20 /min [facility] Oxygen saturation in Arterial blood by Pulse oximetry 97 % 97 % [facility] ([facility], [facility]) Heart rate 105 /min 105 /min [facility] ([facility], [facility]) Body temperature 98.3 [degF] 98.3 [degF] MEDENT ([facility]) Body weight 265.00 [lb_av] 265.00 [lb_av] MEDEN T ([facility], [facility]) Body height 67 [in_i] 67 [in_i] MEDENT ([facility]) 5'7" Body mass index (BMI) [Ratio] 41.5 kg/m2 41.5 k g/m2 [facility] Systolic blood pressure 136 mm[Hg] 136 mm[Hg] M EDENT ([facility] Diastolic blood pressure 92 mm[Hg] 92 mm[Hg] MEDENT ([facility] Body temperature 98.3 [degF] 98.3 [degF] MEDENT ([facility] Heart rate 80 /min 80 /min MEDENT ([facility] Respiratory rate 18 /min 18 /min MEDENT ( [facility] Body height 68 [in_i] 68 [in_i] MEDENT ([facility] 5'8" Body weight 182.00 [lb_av] 182.00 [lb_av] MEDEN T ([facility] Gypsum body weight 140 [lb_av] 140 [lb_av] MEDEN T ([facility] Body mass index (BMI) [Ratio] 27.7 kg/m2 27.7 k g/m2 MEDENT ([facility] Oxygen saturation in Arterial blood by Pulse oximetry 98 % 98 % MEDENT ([facility] Body mass index (BMI) [Ratio] 42.3 kg/m2 42.3 k g/m2 MEDENT ([facility] Body height 68 [in_i] 68 [in_i] MEDENT ([facility] 5'8" Body weight 278.00 [lb_av] 278.00 [lb_av] MEDEN T ([facility] Gypsum body weight 140 [lb_av] 140 [lb_av] MEDEN T ([facility] Oxygen saturation in Arterial blood by Pulse oximetry 96 % 96 % MEDENT ([facility] Systolic blood pressure 148 mm[Hg] 148 mm[Hg] M EDENT ([facility] Respiratory rate 18 /min 18 /min MEDENT ( [facility] Diastolic blood pressure 92 mm[Hg] 92 mm[Hg] MEDENT ([facility] Body temperature 98.2 [degF] 98.2 [degF] MEDENT ([facility] Heart rate 76 /min 76 /min MEDENT ([facility] Systolic blood pressure 138 mm[Hg] 138 mm[Hg] M EDENT ([facility] Oxygen saturation in Arterial blood by Pulse oximetry 95 % 95 % DORA ([facility] Diastolic blood pressure 86 mm[Hg] 86 mm[Hg] DORA ([facility] Body temperature 98.5 [degF] 98.5 [degF] MEDENRIQUE ([facility] Heart rate 84 /min 84 /min DORA ([facility] Respiratory rate 16 /min 16 /min DORA ( [facility] Body height 68 [in_i] 68 [in_i] DORA ([facility] 5'8" Body weight 277.00 [lb_av] 277.00 [lb_av] SHANONEN T ([facility] Gypsum body weight 140 [lb_av] 140 [lb_av] MEDEN T ([facility] Body mass index (BMI) [Ratio] 42.1 kg/m2 42.1 k g/m2 DORA ([facility]
--- OUTSIDE RECORDS SUMMARY | 2021-01-22 03:35 | CCD | Continuity of Care Document ---
Author Author Rosa ALCANTAR Organization Unknown Address [address] [place] [address] [place] [address] Phone [phone] Problems Active Problems Provider Date Acute bronchitis Zak Palacios Onset: 2010 Acute cystitis Zak Palacios Onset: 2010 Cyst of ovary Zak Sam Onset: 04/14/2010 Zak Gong Onset: 1 Asthma without status asthmaticus BILL Mahajan Ons et: 04/14/2010 Social History Type Date Description Comments Sex Unknown ETOH Use Occasionally consumes alcohol Tobacco Use Start: Unknown End: Unknown Patient is a former smoker Recreational Drug Use Never Used Drugs Smoking Status Reviewed: 12/07/20 Patient is a former smoker Allergies, Adverse Reactions, Alerts Active Allergies Criticality Reaction | Severity Comments Date Penicillins Unable to assess criticality 02/15/2008 Sulfa Unable to assess criticality 02/15/2008 IV Contrast Unable to assess criticality 03/20/2009 Minocycline Unable to assess criticality Anaphylaxis 04/13/2010 Bee Sting Unable to assess criticality 08/24/2010 Medications Active Medications SIG Qnty Indications Ordering Provide r Date Prednisone 20mg Tablets 1 tab by mouth twice a day for 4 days 8tabs J20.9 Nicki Reyes JR. 12/07/2020 Ventolin HFA 108(90Base) mcg/Act A erosol 2 puffs by mouth inhaled every 4 hours 8gm J20.9 Domingo Garcia JR., M.D. 12/07/2020 Nebulizer Kit/Tubing/Mouthpiece K it as directed 1units J20.9 Domingo Garcia JR., M.D. Hydroxyzine HCL 25mg Tablets 1 tab PO tid or QHS prn for anxiety/itching 30tabs R21 Domingo monroe JR., M.D. 08/15/2020 F41.9 Loratadine 10mg Capsules 1 tab by mouth every day as needed for allergy sx Unknown Zofran 4mg Tablets take one tablet every 8 hours for nausea Unknown Tylenol 325mg Capsules last dose at 630a Unknown History Medications Mupirocin 2% Ointment apply to affected area twice a day for 7 days 44gm R21 Domingo Chairez M.D. 08/15/2020 - 08/22/2020 Levofloxacin 750mg Tablets 1 by mouth once daily for 5 days 5tabs R05 Domingo Garcia JR., M.D. - 07/22/2020 Prednisone 20mg Tablets 1 tab by mouth twice a day for 5 days 10tabs J20.9 Nicki Reyes JR. 06/29/2020 - 07/04/2020 Immunizations CPT Code Status Date Vaccine Reaction Lot # [id number] Given 01/18/2019 PPD- TB Intradermal Test Neg ative 0mm of induration, read by Jodi Rivers NP. 01/21/19 1:46pm [id number] Given 10/22/2017 PPD- TB Intradermal Test 0 m m of induration noted.Ijeoma VICK 10/24/17 PPD negative [id number] Vital Signs Date Vital Result Comment 12/07/2020 5:42pm BP Systolic 135 mmHg BP Diastolic 90 mmHg Heart Rate 67 /min Respiratory Rate 16 /min O2 % BldC Oximetry 98 % Body Temperature 98.3 F Weight 260.00 lb Height 69 inches 5'9" BMI (Body Mass Index) 38.4 kg/m2 Pain Level 4 08/15/2020 3:34pm BP Systolic 120 mmHg BP Diastolic 62 mmHg Heart Rate 83 /min Respiratory Rate 16 /min O2 % BldC Oximetry 98 % Body Temperature 97.8 F Weight 260.00 lb Height 67 inches 5'7" BMI (Body Mass Index) 40.7 kg/m2 Pain Level 4 Results Description No Information Available Procedures Date Code Description Status 12/07/2020 69724 Office/Outpatient Established Lo w MDM 20-29 Min Completed 08/15/2020 43510 Office/Outpatient Established Lo w MDM 20-29 Min Completed 07/17/2020 01603 Office/Outpatient Established Lo w MDM 20-29 Min Completed 06/29/2020 87896 Office/Outpatient Established Lo w MDM 20-29 Min Completed Medical Devices Description No Information Available Encounters Type Date Location Provider Dx Diagnosis Office Visit 12/07/2020 3:35p Main Office BILL Baca J20.9 Acute bronchitis, unspecified J01.90 Acute sinusitis, unspecified Z20.828 Contact w and exposure to ot h viral communicable diseases Office Visit 08/15/2020 3:30p Main Office Jodi Rivers, KEVEN R21 Rash and other nonspecific skin eruption F41.9 Anxiety disorder, unspecifie d Office Visit 07/17/2020 6:35p Main Office BILL Baca R05 Cough U07.1 Covid-19 Office Visit 06/29/2020 3:50p Main Office BILL Baca J20.9 Acute bronchitis, unspecified U07.1 Covid-19 Assessments Date Code Description Provider 12/07/2020 J20.9 Acute bronchitis, unspecified Re vinceBILL Juarez 12/07/2020 J01.90 Acute sinusitis, unspecified Monique ecca BILL Ceron 12/07/2020 Z20.828 Contact with and (catalan spected) exposure to other viral communicable diseases BILL Baca 08/15/2020 R21 Rash and other nonspecific skin eruption Jodi Rivers, KEVEN 08/15/2020 F41.9 Anxiety disorder, unspecified Se cam Rivers, KEVEN 07/17/2020 R05 Cough BILL Baca 07/17/2020 U07.1 Covid-19 BILL Baca 06/29/2020 J20.9 Acute bronchitis, unspecified Re vince BILL Ceron 06/29/2020 U07.1 Covid-19 BILL Baca Plan of Treatment 12/07/2020 - BILL Baca* J20.9 Acute bronchitis, unspecified* New Medication:* Prednisone 20 mg - 1 tab by mouth twice a day for 4 days * Ventolin HFA 108(90 Base) mcg/Act - 2 puffs by mouth inhaled every 4 hours * Nebulizer Kit/Tubing/Mouthpiece - as directed * J01.90 Acute sinusitis, unspecified * Z20.828 Contact with and (suspected) exposure to other viral communicable diseases Functional Status Description No Information Available Mental Status Description No Information Available Referrals Description No Information Available
--- OUTSIDE RECORDS SUMMARY | 2021-01-22 03:35 | CCD | Continuity of Care Document ---
Author Author Rosa ALCANTAR Organization Unknown Address [address] [place] [address] [place] [address] Phone [phone] Problems Active Problems Provider Date Acute bronchitis [...] 8gm J20.9 Domingo Garcia JR., M.D. 12/07/2020 Hydroxyzine HCL 25mg Tablets 1 tab PO tid or QHS prn for anxiety/itching 30tabs R21 Domingo monroe JR., M.D. 08/15/2020 F41.9 Loratadine 10mg Capsules 1 tab by mouth every day as needed for allergy sx Unknown Zofran 4mg Tablets take one tablet every 8 hours for nausea Unknown Tylenol 325mg Capsules last dose at 630a Unknown History Medications Nebulizer Kit/Tubing/Mouthpiece K it as directed 1units J20.9 Domingo Garcia JR., M.D. - 12/09/2020 Mupirocin 2% Ointment apply to affected area [...] Code Status Date Vaccine Reaction Lot # [id number] Given 01/18/2019 PPD- TB Intradermal Test Neg ative 0mm of induration, read by Jodi Rivers NP. 01/21/19 1:46pm [id number] Given 10/22/2017 PPD- TB Intradermal Test 0 m m of induration noted.Ijeoma VICK 10/24/17 PPD negative [id number] Vital Signs Date Vital Result Comment 12/07/2020 [...] Index) 40.7 kg/m2 Pain Level 4 Results Test Acquired Date Facility Test Result H/L Range Note Respiratory Panel 12/07/2020 [facility] [address] [place] [address] [phone] Respiratory Panel This respiratory <SEE NOTE> 1, 2 1 unable to contact patient. 2 This respiratory PCR panel d etects Influenza A H1, H3 and 2009 H1 viruses, Influenza B virus, Resp iratory Syncytial Virus, Human metapneumovirus, Parainfluenza virus 1, 2, 3 and 4, Adenovirus, Rhinovirus/Enterovirus, Coronavirus HKU1, NL63, OC43, 229E and SARS-CoV-2 (COVID 19), Bordetella pertussis, Bordetella parapertussis, Mycoplasma pneumoniae and Chlamydia pneumoniae. POSITIVE by MULTIPLEXED NUCLEIC ACID PCR SARS-CoV-2 (COVID 19) POSITIVE - SARS-CoV-2 (COVID19) ORGANISM 1: SARS-CoV-2 (COVID 19) Procedures Date Code Description Status 12/07/2020 42333 Office/Outpatient Established Lo w MDM 20-29 Min Completed 08/15/2020 37274 Office/Outpatient Established Lo w MDM 20-29 Min Completed 07/17/2020 20095 Office/Outpatient Established Lo w MDM 20-29 Min Completed 06/29/2020 76360 Office/Outpatient Established Lo w MDM 20-29 Min Completed Medical Devices Description No Information Available Encounters Type Date Location Provider Dx Diagnosis Office Visit 12/07/2020 3:35p Main Office BILL Baca J20.9 Acute bronchitis, unspecified J01.90 Acute sinusitis, unspecified Z20.828 Contact w and exposure to ot h viral communicable diseases Office Visit 08/15/2020 3:30p Main Office Jodi Rivers NP R21 Rash and other nonspecific skin eruption F41.9 Anxiety disorder, unspecifie d Office Visit 07/17/2020 6:35p Main Office BILL Baca R05 Cough U07.1 Covid-19 Office Visit 06/29/2020 3:50p Main Office BILL Baca J20.9 Acute bronchitis, unspecified U07.1 Covid-19 Assessments Date Code Description Provider 12/07/2020 J20.9 Acute bronchitis, unspecified Re vince Alcantar, PA 12/07/2020 J01.90 Acute sinusitis, unspecified Monique abimael Alcantar, PA 12/07/2020 Z20.828 Contact with and (catalan spected) exposure to other viral communicable diseases Estefani Alcantar, PA 08/15/2020 R21 Rash and other nonspecific skin eruption Jodi Rivers, [employer] 08/15/2020 F41.9 Anxiety disorder, unspecified Se cam Rivers, [employer] 07/17/2020 R05 Cough Estefani Alcantar, PA 07/17/2020 U07.1 Covid-19 Estefani Alcantar, PA 06/29/2020 J20.9 Acute bronchitis, unspecified Re vince Alcantar, PA 06/29/2020 U07.1 Covid-19 BILL Baca Plan of Treatment No Information Available Functional Status Description No Information Available Mental Status Description No Information Available Referrals Description No Information Available
--- OUTSIDE RECORDS SUMMARY | 2021-01-22 03:35 | CCD | Continuity of Care Document ---
Author Author Rosa ALCANTAR Organization Unknown Address [address] [place] [address] [place] [address] Phone [phone] Problems Active Problems Provider Date Acute bronchitis [...] Code Status Date Vaccine Reaction Lot # [id number] Given 01/18/2019 PPD- TB Intradermal Test Neg ative 0mm of induration, read by Jodi Rivers NP. 01/21/19 1:46pm [id number] Given 10/22/2017 PPD- TB Intradermal Test 0 m m of induration noted.Ijeoma VICK 10/24/17 PPD negative [id number] Vital Signs Date Vital Result Comment 12/07/2020 [...] Available Procedures Date Code Description Status 12/07/2020 16998 Office/Outpatient Established Lo w MDM 20-29 Min Completed 08/15/2020 71914 Office/Outpatient Established Lo w MDM 20-29 Min Completed 07/17/2020 61485 Office/Outpatient Established Lo w MDM 20-29 Min Completed 06/29/2020 78079 Office/Outpatient Established Lo w MDM 20-29 Min Completed Medical Devices Description No Information Available Encounters Type Date Location Provider Dx Diagnosis Office Visit 12/07/2020 3:35p Main Office BILL Baca J20.9 Acute bronchitis, unspecified J01.90 Acute sinusitis, unspecified Z20.828 Contact w and exposure to ot h viral communicable diseases Office Visit 08/15/2020 3:30p Main Office Jodi Rivers, BENEFITS CONSULTANT R21 Rash and other nonspecific skin eruption F41.9 Anxiety disorder, unspecifie d Office Visit 07/17/2020 6:35p Main Office BILL Baca R05 Cough U07.1 Covid-19 Office Visit 06/29/2020 3:50p Main Office BILL Baca J20.9 Acute bronchitis, unspecified U07.1 Covid-19 Assessments Date Code Description Provider 12/07/2020 J20.9 Acute bronchitis, unspecified Re vince BILL Ceron 12/07/2020 J01.90 Acute sinusitis, unspecified Monique ecca Jesse Alcantar PA 12/07/2020 Z20.828 Contact with and (catalan spected) exposure to other viral communicable diseases BILL Baca 08/15/2020 R21 Rash and other nonspecific skin eruption Jodi Rivers, KEVEN 08/15/2020 F41.9 Anxiety disorder, unspecified Se cam Rivers, BENEFITS CONSULTANT 07/17/2020 R05 Cough BILL Baca 07/17/2020 U07.1 Covid-19 BILL Baca 06/29/2020 J20.9 Acute bronchitis, unspecified Re vince BILL Ceron 06/29/2020 U07.1 Covid-19 BILL Baca Plan of Treatment No Information Available Functional Status Description No Information Available Mental Status Description No Information Available Referrals Description No Information Available
== END 2021-01-22 03:39 | disposition left against medical advice (07) ==
LOC: M ED 23:07
DX: Z53.29 Procedure and treatment not carried out because of patient's decision for other reasons (principal)

== ENCOUNTER → 2021-02-02 | Outpatient (REF) | payer OTHER ==
[~2021-02-02] MED LIST changes: +IBUP80TA PO
== END ==
LOC: M LAB REF 21:34
PROVIDERS: ATTEND Physician Assistant
DX: J02.9 Acute pharyngitis, unspecified (principal); R51.9 Headache, unspecified

== ENCOUNTER 2021-03-27 22:35 | Emergency (ER) | payer OTHER ==
[~2021-03-27] VITALS: Ht 175.3 cm; Wt 127.3 kg
[2021-03-27 22:35] VITALS: BP 150/83
[~2021-03-27 22:35] MED LIST changes: -LEVO500T3; +LEVO500T4
== END 2021-03-27 22:55 | disposition left against medical advice (07) ==
LOC: M ED 22:35
DX: Z53.21 Procedure and treatment not carried out due to patient leaving prior to being seen by health care provider (principal)

== ENCOUNTER → 2021-03-28 | Outpatient (REF) | payer OTHER ==
[2021-03-28 20:05] LABS: RSV AMPLIFICATION NEGATIVE (NEGATIVE)
== END ==
LOC: M LAB REF 18:48
PROVIDERS: ATTEND Physician Assistant Medical
DX: R50.9 Fever, unspecified (principal); R05.9 Cough, unspecified; R53.83 Other fatigue

== ENCOUNTER 2021-05-19 22:34 | Emergency (ER) | payer OTHER ==
[~2021-05-19] VITALS: Ht 172.7 cm; Wt 113.2 kg
[2021-05-19 22:35] VITALS: BP 153/75
== END 2021-05-20 01:16 | disposition left against medical advice (07) ==
LOC: M ED 22:34
DX: Z53.21 Procedure and treatment not carried out due to patient leaving prior to being seen by health care provider (principal)

== ENCOUNTER 2021-12-29 15:54 | Emergency (ER) | payer OTHER ==
[~2021-12-29 15:54] MED LIST changes: -AFRI0.058; +LEVO1TAB39; -LEVO500T4; +OXYM15SP2
[2021-12-29] MEDS ORDERED: HYDR50TA70 (16:01)
[2021-12-29] MEDS ORDERED: methylPREDNISolone 125MG 2ML VIAL IM ONE (16:25)
[2021-12-29] MEDS ORDERED: IPRATROPIUM 0.5MG/ALBUTEROL 2.5MG INH SOL UD 3ML (DUONEB) NEB ONE ×2 (16:25→17:45)
[2021-12-29 17:16] LABS: RSV AMPLIFICATION NEGATIVE (NEGATIVE)
[2021-12-29] MEDS ORDERED: PRED20TA PO (18:23)
[2021-12-29] MEDS ORDERED: ALBU2.5V10 NEB (18:23)
[2021-12-29 18:50] VITALS: BP 132/74
== END 2021-12-29 18:52 | disposition home or self-care (01) ==
LOC: M ED 15:54
DX: J45.901 Unspecified asthma with (acute) exacerbation (principal); J06.9 Acute upper respiratory infection, unspecified; Z79.899 Other long term (current) drug therapy; Z88.0 Allergy status to penicillin; Z88.2 Allergy status to sulfonamides; Z88.5 Allergy status to narcotic agent; Z88.8 Allergy status to other drugs, medicaments and biological substances; Z91.041 Radiographic dye allergy status
CPT/HCPCS: 87631; 94640; 99283; J2930

== ENCOUNTER 2023-05-23 05:31 | Emergency (ER) | payer OTHER ==
[~2023-05-23] VITALS: Ht 172.7 cm; Wt 131.6 kg
[~2023-05-23 05:31] MED LIST changes: +ALBU2.5V10 NEB
[2023-05-23 06:04] LABS: BASO # 0.1 10^3/uL (0.0-0.2); BASO % 0.6 % (0.0-1.0); EOS # 0.1 10^3/uL (0.0-0.5); EOS % 1.6 % (0.0-3.0); HEMATOCRIT 38.6 % (36.0-47.0); HEMOGLOBIN 12.2 g/dl (12.0-15.5); LYMPH # 2.1 10^3/uL (1.5-5.0); LYMPH % 25.7 % (24.0-44.0); MEAN CORPUSCULAR HEMOGLOBIN 26.8 pg (27.0-33.0); MEAN CORPUSCULAR HGB CONC 31.6 g/dl (32.0-36.5); MEAN CORPUSCULAR VOLUME 84.8 fl (80.0-96.0); MONO # 0.6 10^3/uL (0.0-0.8); NEUTROPHILS # 5.2 10^3/uL (1.5-8.5); NEUTROPHILS % 64.6 % (36.0-66.0); PLATELET COUNT, AUTOMATED 197 10^3/uL (150-450); RED BLOOD COUNT 4.55 10^6/uL (4.00-5.40); WHITE BLOOD COUNT 8.1 10^3/uL (4.0-10.0)
[2023-05-23 06:17] LABS: INR 0.96; PROTHROMBIN TIME 12.5 SECONDS (12.5-14.5)
[2023-05-23 06:31] LABS: HCG, SERUM QUALITATIVE NEGATIVE (NEGATIVE)
[2023-05-23 06:32] LABS: ALBUMIN 3.6 G/DL (3.2-5.2); ALKALINE PHOSPHATASE 59 U/L (46-116); ALT/SGPT 16 U/L (7.0-40); AST/SGOT 10 U/L (<34); BILIRUBIN,DIRECT 0.2 MG/DL (<0.4); BILIRUBIN,TOTAL 0.6 MG/DL (0.3-1.2); BLOOD UREA NITROGEN 12 MG/DL (9-23); CALCIUM LEVEL 9.4 MG/DL (8.5-10.1); CARBON DIOXIDE LEVEL 29 MMOL/L (20-31); CHLORIDE LEVEL 103 MMOL/L (98-107); CK-MB VALUE MASS < 1.0 NG/ML (<3.6); CREATININE FOR GFR 0.73 MG/DL (0.55-1.30); GLOMERULAR FILTRATION RATE > 60.0 (>58); GLUCOSE, FASTING 102 MG/DL (60-100); POTASSIUM SERUM 3.8 MMOL/L (3.5-5.1); SODIUM LEVEL 137 MMOL/L (136-145); TOTAL PROTEIN 6.4 G/DL (5.7-8.2)
[2023-05-23 06:36] LABS: CPK CREATINE PHOSPHOKINASE 87 U/L (34-145); MB/CK RELATIVE INDEX 1.14 (< OR =4)
[2023-05-23] MEDS ORDERED: ALBU2.5V10 INH (10:47)
[2023-05-23] MEDS ORDERED: PSEU30TA88 PO (10:47)
[2023-05-23] MEDS ORDERED: ASPI81CH33 PO (10:47)
[2023-05-23] MEDS ORDERED: HOME MED LIST COMPLETE! XX SCH (10:50)
[2023-05-23 11:15] VITALS: O2SAT 97
[2023-05-23] MEDS ORDERED: EZET10TA58 PO (11:49)
[2023-05-23 12:05] VITALS: BP 143/78; TEMP 97.1
== END 2023-05-23 12:14 | disposition home or self-care (01) ==
LOC: M ED 05:31
DX: G43.B0 Ophthalmoplegic migraine, not intractable (principal); F17.210 Nicotine dependence, cigarettes, uncomplicated; F10.10 Alcohol abuse, uncomplicated; Z88.2 Allergy status to sulfonamides; Z88.0 Allergy status to penicillin; Z88.8 Allergy status to other drugs, medicaments and biological substances; Z91.041 Radiographic dye allergy status; Z79.51 Long term (current) use of inhaled steroids; Z79.899 Other long term (current) drug therapy

== ENCOUNTER 2023-10-07 19:57 | Emergency (ER) | payer OTHER ==
[~2023-10-07] VITALS: Ht 172.7 cm; Wt 125.5 kg
[~2023-10-07 19:57] MED LIST changes: +ALBU2.5V10 INH; +ASPI81CH33 PO; +DOXY-323 PO; -DOXY-443 PO; +EZET10TA58 PO; +ONDA-282 PO; -ONDA4TAB6 PO; +PSEU30TA88 PO
[2023-10-07 21:23] LABS: BASO # 0.1 10^3/uL (0.0-0.2); BASO % 0.5 % (0.0-1.0); EOS % 0.3 % (0.0-3.0); HEMATOCRIT 40.1 % (36.0-47.0); HEMOGLOBIN 13.4 g/dl (12.0-15.5); LYMPH # 2.1 10^3/uL (1.5-5.0); LYMPH % 17.7 % (24.0-44.0); MEAN CORPUSCULAR HEMOGLOBIN 29.1 pg (27.0-33.0); MEAN CORPUSCULAR HGB CONC 33.4 g/dl (32.0-36.5); MEAN CORPUSCULAR VOLUME 87.2 fl (80.0-96.0); MONO # 0.8 10^3/uL (0.0-0.8); MONO % 6.6 % (2.0-8.0); NEUTROPHILS # 8.9 10^3/uL (1.5-8.5); NEUTROPHILS % 74.5 % (36.0-66.0); PLATELET COUNT, AUTOMATED 194 10^3/uL (150-450); WHITE BLOOD COUNT 11.9 10^3/uL (4.0-10.0)
[2023-10-07 21:46] LABS: CK-MB VALUE MASS < 1.0 NG/ML (<3.6)
[2023-10-07 21:48] LABS: BLOOD UREA NITROGEN 14 MG/DL (9-23); CALCIUM LEVEL 8.9 MG/DL (8.5-10.1); CARBON DIOXIDE LEVEL 29 MMOL/L (20-31); CHLORIDE LEVEL 107 MMOL/L (98-107); CREATININE FOR GFR 0.95 MG/DL (0.55-1.30); GLOMERULAR FILTRATION RATE > 60.0 (>58); GLUCOSE, FASTING 139 MG/DL (60-100); POTASSIUM SERUM 3.7 MMOL/L (3.5-5.1); SODIUM LEVEL 140 MMOL/L (136-145)
[2023-10-07 21:55] LABS: PROCALCITONIN 0.05 ng/ml
[2023-10-07 22:11] LABS: CPK CREATINE PHOSPHOKINASE 96 U/L (34-145); MB/CK RELATIVE INDEX 1.04 (< OR =4)
[2023-10-07] MEDS: NS 1,000 ML IV ONE (23:40)
[2023-10-07] MEDS: KETOROLAC 30 MG/ML 1ML VIAL IV ONE (23:41)
[2023-10-08 00:49] LABS: CK-MB VALUE MASS < 1.0 NG/ML (<3.6)
[2023-10-08 00:51] LABS: CPK CREATINE PHOSPHOKINASE 95 U/L (34-145); MB/CK RELATIVE INDEX 1.05 (< OR =4)
[2023-10-08] MEDS ORDERED: KETO10TAB PO (02:07)
[2023-10-08] MEDS ORDERED: CEPH500C PO (02:07)
[2023-10-08] MEDS: CEPHALEXIN 500 MG CAP PO ONE (02:22)
[2023-10-08 02:32] VITALS: BP 127/77; TEMP 97.8; O2SAT 98
== END 2023-10-08 02:35 | disposition home or self-care (01) ==
LOC: M ED 19:57
DX: S70.02XA Contusion of left hip, initial encounter (principal); Y92.9 Unspecified place or not applicable; Y93.9 Activity, unspecified; Y99.9 Unspecified external cause status; R00.0 Tachycardia, unspecified; J45.909 Unspecified asthma, uncomplicated; F41.9 Anxiety disorder, unspecified; Z91.041 Radiographic dye allergy status; Z88.0 Allergy status to penicillin; Z88.2 Allergy status to sulfonamides; Z88.5 Allergy status to narcotic agent; Z79.1 Long term (current) use of non-steroidal anti-inflammatories (NSAID); Z79.2 Long term (current) use of antibiotics
CPT/HCPCS: 71045; 73700; 80048; 82550; 82553; 83605; 84145; 84484; 85025; 85379; 86140; 87040; 93005; 93041; 93971; 94760; 96361; 96374; 99284; J1885

== ENCOUNTER 2023-12-26 18:32 | Emergency (ER) | payer OTHER ==
[~2023-12-26] VITALS: Ht 172.7 cm; Wt 109.1 kg
[~2023-12-26 18:32] MED LIST changes: +CEPH500C PO; -DOXY-323 PO; +DOXY-441 PO; +KETO10TAB PO
[2023-12-26 18:43] VITALS: BP 160/94; TEMP 98.3; O2SAT 100
[2023-12-26] MEDS ORDERED: ONDANSETRON 4MG ORAL DISINTEGRATING TAB PO ONE (21:30)
[2023-12-26] MEDS ORDERED: ONDA-282 PO (21:31)
== END 2023-12-26 21:38 | disposition home or self-care (01) ==
LOC: EDBD 18:32 → M ED 18:32
DX: S00.93XA Contusion of unspecified part of head, initial encounter (principal); Y92.410 Unspecified street and highway as the place of occurrence of the external cause; Y93.9 Activity, unspecified; Y99.9 Unspecified external cause status; V49.40XA Driver injured in collision with unspecified motor vehicles in traffic accident, initial encounter; Z87.891 Personal history of nicotine dependence; Z88.0 Allergy status to penicillin; Z88.2 Allergy status to sulfonamides; Z88.5 Allergy status to narcotic agent; Z91.041 Radiographic dye allergy status; Z79.1 Long term (current) use of non-steroidal anti-inflammatories (NSAID)

== ENCOUNTER 2024-04-12 20:11 | Emergency (ER) | payer OTHER ==
[~2024-04-12] VITALS: Ht 170.2 cm; Wt 132.4 kg
[2024-04-12 22:43] LABS: BASO # 0.1 10^3/uL (0.0-0.2); BASO % 0.8 % (0.0-1.0); EOS # 0.2 10^3/uL (0.0-0.5); HEMATOCRIT 37.3 % (36.0-47.0); HEMOGLOBIN 12.6 g/dl (12.0-15.5); LYMPH % 22.4 % (24.0-44.0); MEAN CORPUSCULAR HEMOGLOBIN 31.1 pg (27.0-33.0); MEAN CORPUSCULAR HGB CONC 33.8 g/dl (32.0-36.5); MEAN CORPUSCULAR VOLUME 92.1 fl (80.0-96.0); MONO # 0.5 10^3/uL (0.0-0.8); MONO % 5.1 % (2.0-8.0); NEUTROPHILS # 6.2 10^3/uL (1.5-8.5); NEUTROPHILS % 69.3 % (36.0-66.0); PLATELET COUNT, AUTOMATED 231 10^3/uL (150-450); RED BLOOD COUNT 4.05 10^6/uL (4.00-5.40)
[2024-04-12 23:11] LABS: BLOOD UREA NITROGEN 11 MG/DL (9-23); CALCIUM LEVEL 8.4 MG/DL (8.5-10.1); CARBON DIOXIDE LEVEL 25 MMOL/L (20-31); CHLORIDE LEVEL 109 MMOL/L (98-107); CREATININE FOR GFR 0.77 MG/DL (0.55-1.30); GLOMERULAR FILTRATION RATE > 60.0 (>58); GLUCOSE, FASTING 113 MG/DL (60-100); POTASSIUM SERUM 3.9 MMOL/L (3.5-5.1); SODIUM LEVEL 142 MMOL/L (136-145)
[2024-04-12 23:22] LABS: HCG, SERUM QUANTITATIVE < 2.6 MIU/ML (<4.2)
[2024-04-13] MEDS ORDERED: VENTAER (02:24)
[2024-04-13 04:32] VITALS: BP 174/93; TEMP 97.1; O2SAT 97
== END 2024-04-13 04:33 | disposition home or self-care (01) ==
LOC: M ED 20:11
DX: N93.8 Other specified abnormal uterine and vaginal bleeding (principal); D25.9 Leiomyoma of uterus, unspecified; F10.10 Alcohol abuse, uncomplicated; Z88.0 Allergy status to penicillin; Z88.2 Allergy status to sulfonamides; Z88.5 Allergy status to narcotic agent; Z88.8 Allergy status to other drugs, medicaments and biological substances; Z91.041 Radiographic dye allergy status; Z79.51 Long term (current) use of inhaled steroids

== ENCOUNTER 2024-07-06 23:29 | Emergency (ER) | payer MEDICAID, OTHER, SELFPAY ==
[~2024-07-06] VITALS: Ht 172.7 cm; Wt 118.2 kg
[~2024-07-06 23:29] MED LIST changes: +VENTAER
[2024-07-07 03:31] VITALS: BP 136/93; TEMP 97.1; O2SAT 98
== END 2024-07-07 03:33 | disposition home or self-care (01) ==
LOC: M ED 23:29
DX: M25.461 Effusion, right knee (principal); S83.91XA Sprain of unspecified site of right knee, initial encounter; S33.5XXA Sprain of ligaments of lumbar spine, initial encounter; Y92.9 Unspecified place or not applicable; Y93.9 Activity, unspecified; Y99.0 Civilian activity done for income or pay; F17.210 Nicotine dependence, cigarettes, uncomplicated; Z88.0 Allergy status to penicillin; Z88.2 Allergy status to sulfonamides; Z88.5 Allergy status to narcotic agent; Z91.041 Radiographic dye allergy status; Z79.51 Long term (current) use of inhaled steroids

== ENCOUNTER → 2025-01-31 | Outpatient (CLI) | payer OTHER ==
[~2025-01-31] MED LIST changes: -DIPH50CA PO; +DIPH50CA31 PO
== END ==
LOC: M RAD 15:28
PROVIDERS: ATTEND Physician Assistant Medical
DX: M25.561 Pain in right knee (principal)

== ENCOUNTER → 2025-02-16 | Outpatient (CLI) | payer OTHER ==
[2025-02-16 17:44] LABS: BASO # 0.1 10^3/uL (0.0-0.2); BASO % 0.7 % (0.0-1.0); EOS # 0.2 10^3/uL (0.0-0.5); EOS % 2.1 % (0.0-3.0); LYMPH # 1.7 10^3/uL (1.5-5.0); LYMPH % 23.1 % (24.0-44.0); MONO # 0.4 10^3/uL (0.0-0.8); MONO % 5.6 % (2.0-8.0); NEUTROPHILS # 5.1 10^3/uL (1.5-8.5); NEUTROPHILS % 68.1 % (36.0-66.0); PLATELET COUNT, AUTOMATED 217 10^3/uL (150-450)
[2025-02-16 18:13] LABS: ALT/SGPT 57.0 U/L (7.0-40); AST/SGOT 39.0 U/L (<34); CALCIUM LEVEL 8.9 MG/DL (8.5-10.1); CARBON DIOXIDE LEVEL 29.0 MMOL/L (20-31); CHLORIDE LEVEL 105.0 MMOL/L (98-107); CREATININE FOR GFR 0.82 MG/DL (0.55-1.30); GLOMERULAR FILTRATION RATE 87.6 (>58); POTASSIUM SERUM 4.0 MMOL/L (3.5-5.1); SODIUM LEVEL 143.0 MMOL/L (136-145)
== END ==
LOC: M WUC 13:11
PROVIDERS: ATTEND Student in an Organized Health Care Education/Training Program
DX: R10.11 Right upper quadrant pain (principal)

== ENCOUNTER 2025-03-13 15:27 | Emergency (ER) | payer OTHER ==
[~2025-03-13] VITALS: Ht 172.7 cm; Wt 129.3 kg
[2025-03-13 16:11] LABS: BASO # 0.1 10^3/uL (0.0-0.2); BASO % 0.6 % (0.0-1.0); EOS # 0.2 10^3/uL (0.0-0.5); EOS % 1.6 % (0.0-3.0); LYMPH # 2.2 10^3/uL (1.5-5.0); LYMPH % 21.0 % (24.0-44.0); MONO # 0.5 10^3/uL (0.0-0.8); MONO % 4.6 % (2.0-8.0); NEUTROPHILS # 7.5 10^3/uL (1.5-8.5); NEUTROPHILS % 71.8 % (36.0-66.0); PLATELET COUNT, AUTOMATED 250 10^3/uL (150-450)
[2025-03-13 16:23] VITALS: BP 130/90; TEMP 98.3; O2SAT 98
[2025-03-13 16:33] LABS: INR 0.9
[2025-03-13] MEDS: diphenhydrAMINE 50 MG/ML VIAL IV ONE (16:45)
[2025-03-13] MEDS: KETOROLAC 30 MG/ML 1 ML VIAL IV ONE (16:46)
[2025-03-13 16:48] VITALS: BP 168/95
[2025-03-13 16:57] VITALS: TEMP 98.6; O2SAT 97
[2025-03-13] MEDS ORDERED: IMIT50TA PO (17:09)
== END 2025-03-13 17:28 | disposition home or self-care (01) ==
LOC: M ED 16:32
DX: G43.909 Migraine, unspecified, not intractable, without status migrainosus (principal); I10 Essential (primary) hypertension; J45.909 Unspecified asthma, uncomplicated; Z88.0 Allergy status to penicillin; Z88.2 Allergy status to sulfonamides; Z88.5 Allergy status to narcotic agent; Z91.041 Radiographic dye allergy status; Z79.51 Long term (current) use of inhaled steroids; Z79.899 Other long term (current) drug therapy
CPT/HCPCS: 70450; 71045; 80047; 83735; 85025; 85610; 85730; 86850; 86900; 86901; 93005; 93041; 94760; 96374; 96375; 99285; J1200; J1885; J2765